=== PATIENT | female | born 1945 | race Hispanic/Latino ===

== ENCOUNTER → 2017-12-14 | Outpatient (CLI) | payer MEDICARE ==
--- NOTE | 2017-12-14 17:30 | Diagnostic Imaging Report ---
History: Low back pain for 2 weeks Comparison studies: CT lumbar spine 09/02/2016 Technique: Axial images were obtained from T12 through the sacrum. Coronal and sagittal images reconstructed from the axial data. Intravenous contrast: None Findings: Number of non-rib bearing vertebral bodies: 5 Alignment: Normal lordosis. No scoliosis. Soft tissues: No abnormalities. Paraspinal muscles: Mild fatty infiltration of the paraspinal musculature Vertebrae: No fractures, infection or neoplasm. Degenerative changes: L1-L2: No abnormalities. L2-L3: Diffuse disc bulge results in no significant canal stenosis or foraminal narrowing L3-L4: Diffuse disc bulge and mild facet hypertrophy results in no significant canal stenosis or foraminal narrowing L4-L5: Diffuse disc bulge, moderate right and severe left facet hypertrophy results in mild canal stenosis and mild left foraminal narrowing, stable L5-S1: Diffuse disc bulge with superimposed right subarticular disc protrusion and mild bilateral facet hypertrophy results in mild canal stenosis, narrowing of the right subarticular recess (abutting the descending S1 nerve root) and no significant neural foraminal narrowing, stable Sacroiliac joints: Minimal degenerative changes. Atherosclerotic changes of the abdominal aorta. Surgical donnell are partially visualized at the sigmoid colon with adjacent dystrophic calcification. IMPRESSION: 1. No significant change from previous examination. 2. Moderate right and severe left facet hypertrophy at L4-5 results in mild canal stenosis and mild left foraminal, unchanged. 3. Right subarticular disc protrusion at L5-S1 abutting the descending S1 root with mild canal stenosis and no significant foraminal narrowing, unchanged. Signed by: DR Regino Mina M.D. on 12/14/2017 5:26 PM
== END ==
LOC: CT 11:43
PROVIDERS: ATTEND Internal Medicine
DX: M54.5 Low back pain (principal)
CPT/HCPCS: 72131

== ENCOUNTER 2019-03-11 05:57 | Emergency (ER) | payer MEDICARE ==
[~2019-03-11] VITALS: Ht 154.9 cm; Wt 56.2 kg
--- OUTSIDE RECORDS SUMMARY | 2019-03-11 06:01 | XMS REPORT | Clinical Summary ---
Author Author APOLLO [facility] Address Unknown Phone Unavailable Care Team Providers Care Rubber Worker Name Role Phone Pcp, No PCP Unavailable Allergies Comments Active Allergy Reactions Severity Noted Date Meperidine 05/01/2018 Morphine 05/01/2018 Nitrofuran Analogues 05/01/2018 Sulfa (Sulfonamide 05/01/2018 Antibiotics) Medications End Date Status Medication Sig Dispensed Refills Start Date Active carvedilol (COREG) 25 MG Take 25 mg by 0 tablet mouth 2 (two) times daily with breakfast and dinner. Active glimepiride (AMARYL) 4 MG Take 4 mg by 0 tablet mouth every morning before breakfast. Active clopidogrel (PLAVIX) 75 Take 75 mg by 0 mg tablet mouth daily. Active aspirin 81 MG chewable Take 81 mg by 0 tablet mouth daily. Active ezetimibe (ZETIA) 10 mg Take 10 mg by 0 tablet mouth daily. Active ranolazine (RANEXA) 500 Take 1,000 mg 0 MG 12 hr tablet by mouth daily . Active ALPRAZolam (XANAX) 0.5 MG Take 0.5 mg 0 tablet by mouth every night as needed for Anxiety. Active zolpidem (AMBIEN) 5 MG Take 5 mg by 0 tablet mouth every night as needed for Insomnia. Active omeprazole-sodium Take 1 0 bicarbonate (ZEGERID) capsule by 40-1.1 mg-gram per mouth 3 capsuleIndications: (three) times gastric ulcer daily as needed. Active icosapent ethyl (VASCEPA) Take 1 0 1 gram Cap capsule by mouth 2 (two) times daily . 05/03/2019 Active rosuvastatin (CRESTOR) 20 Take 1 tablet 30 tablet 0 201 MG tablet (20 mg total) 8 by mouth daily. Active tiZANidine (ZANAFLEX) 2 Take 2 mg by 0 MG tablet mouth every 12 (twelve) hours. Active clidinium-chlordiazepoxid Take 1 0 e (LIBRAX) 5-2.5 mg per capsule by capsule mouth 3 (three) times daily with meals As needed . 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 H/O percutaneous transluminal coronary angioplasty 12/22/2018 Chest pain 12/09/2018 Chest pain, unspecified type 05/01/2018 Encounters Care Team Description Date Type Specialty 12/23/2018 Travel Eliezer Tirado MD PCI 12/22/2018 Surgery Eliezer Tirado MD 12/22/2018 Hospital Cardiology - Encounter 12/23/2018 Eliezer Tirado MD 12/22/2018 Orders Only Cardiology Justin Gao MD Neason, Chau Le, MD Chest pain, unspecified type (Primary Dx) 12/09/2018 Emergency Cardiac Intensive Care - 12/10/2018 12/08/2018 Orders Only General Internal Medicine 12/08/2018 Travel 05/02/2018 Orders Only General Internal Medicine Baron Duval MD Hasan, Harrison Galvez MD Chest pain, unspecified type (Primary Dx); Coronary artery disease involving [place] coronary artery, angina presence unspecified, unspecified whether [place] or transplanted heart; History of diabetes mellitus; Hypertension, unspecified type 05/01/2018 Emergency Cardiology - 05/02/2018 after 03/10/2018 Social History Date Tobacco Use Types Packs/Day Years Used Never Smoker Smokeless Tobacco: Never Used Alcohol Use Drinks/Week oz/Week Comments No Alcohol Habits Answer Date Recorded How often do you have a drink containing alcohol? Never 12/22/2018 How many drinks containing alcohol do you have on Not asked a typical day when you are drinking? How often do you have six or more drinks on one Not asked occasion? Sex Assigned at Date Recorded Not on file Industry Job Start Date Occupation Not on file Not on file Not on file Travel End Travel History Travel Start No recent travel history available. Last Filed Vital Signs Time Taken Vital Sign Reading 12/23/2018 4:09 AM [facility] Blood Pressure 134/63 12/23/2018 4:09 AM [facility] Pulse 82 12/23/2018 4:09 AM [facility] Temperature 36.3 C (97.4 F) 12/23/2018 4:09 AM [facility] Respiratory Rate 18 12/23/2018 4:09 AM [facility] Oxygen Saturation 97% - Inhaled Oxygen - Concentration 12/22/2018 10:00 AM [facility] Weight 57.6 kg (127 lb) 12/22/2018 10:00 AM [facility] Height 154.9 cm (5' 1") 12/22/2018 10:00 AM [facility] Body Mass Index 24 Plan of Treatment Not on file Implants Device Identifier Shelf Expiration Date Model / Serial / Lot Implanted Type Area Manufactur er 06/28/2020 [id number] / / [id number] Synergy Monorail Coronary Stent Left: Coronary [place] Implanted: Qty: 1 on 12/22/2018 by Eliezer Horne MD Procedures Comments Procedure Name Priority Date/Time Associated Diagnosis RHYTHM STRIP - SCAN 02/10/2019 10:30 AM CDT RHYTHM STRIP - SCAN 02/10/2019 9:01 AM CDT VASCULAR DIAGRAM -SCAN 01/10/2019 4:51 PM [facility] VASCULAR DIAGRAM -SCAN 01/02/2019 12:30 PM [facility] CARDIAC CATH REPORT - 01/02/2019 SCAN 12:30 PM [facility] REPORT OF PROCEDURE - 12/26/2018 ENDOSCOPY SCAN 11:50 AM [facility] RHYTHM STRIP - SCAN 12/26/2018 11:50 AM [facility] CBC (HEMOGRAM ONLY) Routine 12/23/2018 4:14 AM [facility] BASIC METABOLIC PANEL (7) Routine 12/23/2018 4:14 AM [facility] POCT-GLUCOSE METER Routine 12/22/2018 4:37 PM [facility] POCT-ACT Routine 12/22/2018 3:04 PM [facility] PCI 12/22/2018 Coronary artery disease 2:25 PM [facility] of [place] artery with stable angina pectoris, unspecified whether [place] or transplanted heart (HCC) Case Notes POP6 Special Needs Req. Later time CBC W/PLT COUNT & AUTO Routine 12/22/2018 DIFFERENTIAL 10:41 AM [facility] TSH Routine 12/22/2018 10:41 AM [facility] LIPID PANEL Routine 12/22/2018 10:41 AM [facility] HEMOGLOBIN A1C Routine 12/22/2018 10:41 AM [facility] CBC W/PLT COUNT & AUTO Routine 12/22/2018 DIFFERENTIAL 10:41 AM [facility] BASIC METABOLIC PANEL (7) Routine 12/22/2018 10:41 AM [facility] TROPONIN I STAT 12/10/2018 12:34 PM [facility] POCT-GLUCOSE METER Routine 12/10/2018 11:48 AM [facility] POCT-GLUCOSE METER Routine 12/10/2018 8:05 AM [facility] HEMOGLOBIN A1C Routine 12/10/2018 3:12 AM [facility] CBC W/PLT COUNT & AUTO Routine 12/10/2018 DIFFERENTIAL 3:07 AM [facility] CBC W/PLT COUNT & AUTO Routine 12/10/2018 DIFFERENTIAL 3:07 AM [facility] BASIC METABOLIC PANEL (7) Routine 12/10/2018 3:07 AM [facility] TROPONIN I STAT 12/10/2018 3:07 AM [facility] ECG 12-LEAD Routine 12/09/2018 6:39 PM [facility] Procedure Note - Interface, External Ris In - 12/09/2018 6:44 PM [facility] Ventricula r Rate 86 BPM Atrial Rate 86 BPM P-R Interval 126 ms QRS Duration 62 ms Q-T Interval 400 ms QTC Calculatio n(Bazett) 478 ms P [place] 41 degrees R [place] -4 degrees T [place] 37 degrees Normal sinus rhythm Normal ECG ECG 12-LEAD STAT 12/09/2018 6:39 PM [facility] POCT-GLUCOSE METER Routine 12/09/2018 5:35 PM [facility] TROPONIN I STAT 12/09/2018 2:10 PM [facility] POCT-GLUCOSE METER Routine 12/09/2018 11:58 AM [facility] ECG 12-LEAD Routine 12/09/2018 11:48 AM [facility] Procedure Note - Interface, External Ris In - 12/09/2018 12:37 PM [facility] Ventricula r Rate 50 BPM Atrial Rate 50 BPM P-R Interval 128 ms QRS Duration 72 ms Q-T Interval 528 ms QTC Calculatio n(Bazett) 481 ms P [place] 62 degrees R [place] 14 degrees T [place] 39 degrees Sinus bradycardi a Otherwise normal ECG ECG 12-LEAD STAT 12/09/2018 11:48 AM [facility] NM CARDIAC PET PERFUSION Routine 12/09/2018 REST AND/OR STRESS 11:38 AM [facility] TREADMILL Routine 12/09/2018 TOLERANCE(NON-NUCLEAR 11:32 AM [facility] TREADMILL) ECG 12-LEAD Routine 12/09/2018 11:21 AM [facility] Procedure Note - Interface, External Ris In - 12/09/2018 12:36 PM [facility] Ventricula r Rate 75 BPM Atrial Rate 75 BPM P-R Interval 142 ms QRS Duration 68 ms Q-T Interval 442 ms QTC Calculatio n(Bazett) 493 ms P [place] 67 degrees R [place] 22 degrees T [place] 54 degrees Normal sinus rhythm Prolonged QT Abnormal ECG ECG 12-LEAD STAT 12/09/2018 11:21 AM [facility] ECG 12-LEAD Routine 12/09/2018 7:10 AM [facility] Procedure Note - Interface, External Ris In - 12/09/2018 7:14 AM [facility] Ventricula r Rate 73 BPM Atrial Rate 73 BPM P-R Interval 146 ms QRS Duration 64 ms Q-T Interval 436 ms QTC Calculatio n(Bazett) 480 ms P [place] 72 degrees R [place] 13 degrees T [place] 68 degrees Normal sinus rhythm Normal ECG When compared with ECG of 9 23:28, No significan t change was found ECG 12-LEAD STAT 12/09/2018 7:10 AM [facility] POCT-GLUCOSE METER Routine 12/09/2018 6:58 AM [facility] TROPONIN I STAT 12/09/2018 6:55 AM [facility] ED ECG INTERPRETATION Routine 12/09/2018 1:40 AM [facility] XR CHEST 1 VIEW STAT 12/09/2018 PORTABLE/BEDSIDE 12:11 AM [facility] CBC W/PLT COUNT & AUTO STAT 12/08/2018 DIFFERENTIAL 11:48 PM [facility] B-TYPE NATRIURETIC FACTOR STAT 12/08/2018 (BNP) 11:48 PM [facility] PT/APTT STAT 12/08/2018 11:48 PM [facility] CBC W/PLT COUNT & AUTO STAT 12/08/2018 DIFFERENTIAL 11:48 PM [facility] TROPONIN I STAT 12/08/2018 11:48 PM [facility] MAGNESIUM STAT 12/08/2018 11:48 PM [facility] BASIC METABOLIC PANEL (7) STAT 12/08/2018 11:48 PM [facility] ECG 12-LEAD STAT 12/08/2018 11:28 PM [facility] RHYTHM STRIP - SCAN 05/04/2018 9:20 AM CDT POCT-GLUCOSE METER Routine 05/02/2018 6:22 PM CDT POCT-GLUCOSE METER Routine 05/02/2018 12:29 PM CDT TROPONIN I STAT 05/02/2018 12:09 PM CDT POCT-GLUCOSE METER Routine 05/02/2018 9:30 AM CDT NM CARDIAC PET PERFUSION Routine 05/02/2018 REST AND/OR STRESS 9:05 AM CDT TREADMILL Routine 05/02/2018 TOLERANCE(NON-NUCLEAR 8:57 AM CDT TREADMILL) ECG 12-LEAD Routine 05/02/2018 8:54 AM CDT Procedure Note - Interface, External Ris In - 05/02/2018 9:12 AM CDT Ventricula r Rate 69 BPM Atrial Rate 69 BPM P-R Interval 128 ms QRS Duration 72 ms Q-T Interval 430 ms QTC Calculatio n(Bazett) 460 ms P [place] 67 degrees R [place] 37 degrees T [place] 59 degrees Normal sinus rhythm Normal ECG ECG 12-LEAD STAT 05/02/2018 8:54 AM CDT CBC W/PLT COUNT & AUTO Routine 05/02/2018 DIFFERENTIAL 1:08 AM CDT CBC W/PLT COUNT & AUTO Routine 05/02/2018 DIFFERENTIAL 1:08 AM CDT TROPONIN I STAT 05/02/2018 1:08 AM CDT BASIC METABOLIC PANEL (7) Routine 05/02/2018 1:08 AM CDT POCT-GLUCOSE METER Routine 05/01/2018 10:27 PM CDT ED ECG INTERPRETATION Routine 05/01/2018 9:32 PM CDT CBC W/PLT COUNT & AUTO STAT 05/01/2018 DIFFERENTIAL 4:46 PM CDT CREATINE KINASE (CK), STAT 05/01/2018 TOTAL AND MB 4:46 PM CDT B-TYPE NATRIURETIC FACTOR STAT 05/01/2018 (BNP) 4:46 PM CDT PT/APTT STAT 05/01/2018 4:46 PM CDT CBC W/PLT COUNT & AUTO STAT 05/01/2018 DIFFERENTIAL 4:46 PM CDT TROPONIN I STAT 05/01/2018 4:46 PM CDT MAGNESIUM STAT 05/01/2018 4:46 PM CDT BASIC METABOLIC PANEL (7) STAT 05/01/2018 4:46 PM CDT XR CHEST 1 VIEW STAT 05/01/2018 PORTABLE/BEDSIDE 3:37 PM CDT ECG 12-LEAD Routine 05/01/2018 3:13 PM CDT after 03/10/2018 Results * RHYTHM STRIP - SCAN (02/10/2019 10:30 AM CDT) Only the most recent of 4 results within the time period is included. Narrative Performed At * VASCULAR DIAGRAM -SCAN (01/10/2019 4:51 PM [facility]) Only the most recent of 2 results within the time period is included. Narrative Performed At * CARDIAC CATH REPORT - SCAN (01/02/2019 12:30 PM [facility]) Narrative Performed At * EKG-SCANNED (12/26/2018 11:50 AM [facility]) Narrative Performed At * CBC (Hemogram only) (12/23/2018 4:14 AM [facility]) WBC 7.3 3.5 - 10.5 K/L [facility] RBC 3.91 (L) 3.93 - 5.22 M/L [facility] Hemoglobin 11.4 11.2 - 15.7 GM/DL [facility] Hematocrit 36.7 34.1 - 44.9 % [facility] MCV 93.9 79.4 - 94.8 fL [facility] MCH 29.2 25.6 - 32.2 pg [facility] MCHC 31.1 (L) 32.2 - 35.5 GM/DL [facility] RDW 13.2 11.7 - 14.4 % [facility] Platelets 178 150 - 450 K/CU MM [facility] MPV 10.9 9.4 - 12.3 fL [facility] nRBC 0 0 - 0 /100 WBC [facility] Specimen Blood Performing Organization Address City/State/Zipcode Phone Number [facility] [address] [place] [address] [facility] * Basic metabolic panel (12/23/2018 4:14 AM [facility]) Only the most recent of 6 results within the time period is included. Sodium 136 136 - 145 meq/L [facility] Potassium 4.0 3.5 - 5.1 meq/L [facility] Chloride 108 (H) 98 - 107 meq/L [facility] CO2 21 (L) 22 - 29 meq/L [facility] BUN 13 7 - 21 mg/dL [facility] Creatinine 0.80 0.57 - 1.25 mg/dL [facility] Glucose 120 (H) 70 - 105 mg/dL [facility] Calcium 8.7 8.4 - 10.2 mg/dL [facility] EGFR 70Comment: ESTIMATED GFR IS mL/min/1.73 sq m [facility] NOT ACCURATE CREATININE [facility] CLEARANCE IN PREDICTING GLOMERULAR FILTRATION RATE. ESTIMATED GFR IS NOT APPLICABLE FOR DIALYSIS PATIENTS. Specimen Blood Performing Organization Address City/[facility] [place] [address] [phone] [place] [address] * POC-Glucose meter (12/22/2018 4:37 PM [facility]) Only the most recent of 10 results within the time period is included. POC-Glucose Meter 89Comment: TESTED AT [facility] 70 - 110 mg/dL [address] Specimen Blood Performing Organization Address City/[facility]/[place] [address] [facility] * POC ACTIVATED CLOTTING TIME (12/22/2018 3:04 PM [facility]) Activated Clotting Time 263Comment: TESTED AT [facility] sec [address] Specimen Blood Performing Organization Address City/[facility]/[place] [address] [facility] * CBC with platelet count + automated diff (12/22/2018 10:41 AM [facility]) Only the most recent of 5 results within the time period is included. WBC 9.4 3.5 - 10.5 K/L [facility] RBC 4.40 3.93 - 5.22 M/L [facility] Hemoglobin 13.2 11.2 - 15.7 GM/DL [facility] Hematocrit 41.1 34.1 - 44.9 % [facility] MCV 93.4 79.4 - 94.8 fL [facility] MCH 30.0 25.6 - 32.2 pg [facility] MCHC 32.1 (L) 32.2 - 35.5 GM/DL [facility] RDW 13.2 11.7 - 14.4 % [facility] Platelets 210 150 - 450 K/CU MM [facility] MPV 10.5 9.4 - 12.3 fL [facility] nRBC 0 0 - 0 /100 WBC [facility] % Neutros 66 % [facility] % Lymphs 25 % [facility] % Monos 7 % [facility] % Eos 1 % [facility] % Baso 0 % [facility] # Neutros 6.13 1.56 - 6.13 K/L [facility] # Lymphs 2.38 1.18 - 3.74 K/L [facility] # Monos 0.67 (H) 0.24 - 0.36 K/L [facility] # Eos 0.11 0.04 - 0.36 K/L [facility] # Baso 0.04 0.01 - 0.08 K/L [facility] Immature 0 0 - 1 % [facility] Granulocytes-[facility] Specimen Blood Performing Organization Address City/[facility]/Zipcode Phone Number [address] [address] [phone] [place] [address] * TSH (12/22/2018 10:41 AM [facility]) TSH 2.61 0.35 - 4.94 uIU/mL [facility] Specimen Blood Performing Organization Address City/[facility]/Zipcode Phone Number [address] [address] [phone] [place] [address] * Hemoglobin A1c (12/22/2018 10:41 AM [facility]) Only the most recent of 2 results within the time period is included. Hemoglobin A1C 8.0 (H) 4.3 - 6.1 % [facility] Specimen Blood Performing Organization Address [facility] [place] [address] [phone] [place] [address] * Lipid panel (12/22/2018 10:41 AM [facility]) Triglycerides 184 mg/dL [facility] Cholesterol 149 mg/dL [facility] HDL 41 mg/dL [facility] LDL Calculated 71 mg/dL [facility] Specimen Blood Narrative Performed At Triglyceride Reference Range: [facility] Low Risk <150 [facility] [id number] High Risk 200-499 Very High Risk>=500 Cholesterol Reference Range: Low Risk <200 [id number] High Risk>240 HDL Cholesterol Reference Range: Low Risk >=60 High Risk <40 LDL Cholesterol Reference Range: Optimal<100 Near [id number] Very High >=190 Performing Organization Address City/[facility] Centercode Phone Number [address] [phone] [facility] * Troponin I (12/10/2018 12:34 PM [facility]) Only the most recent of 8 results within the time period is included. Troponin I <0.01 0.00 - 0.03 ng/mL [facility] Specimen Blood Narrative Performed At Troponin I (TnI) levels must be interpreted in the context of the presenting [facility] symptoms and the clinical findings. Elevated TnI levels indicate myocardial [facility] damage, but are not specific for ischemic heart disease. Elevated TnI levels are seen in patients with other cardiac conditions (including myocarditis and congestive heart failure), and slight TnI elevations occur in patients with other conditions, including sepsis, renal failure, acidosis, acute neurological disease, and persistent tachyarrhythmia. Performing Organization Address City/State/Zipcode Phone Number [facility] [address] [place] [address] [facility] * ECG 12 lead (12/09/2018 6:39 PM [facility]) Only the most recent of 7 results within the time period is included. Specimen Narrative Performed At Ventricular Rate 86 BPM GE MUSE Atrial Rate 86 BPM P-R Interval 126 ms QRS Duration 62 ms Q-T Interval 400 ms QTC Calculation(Bazett) 478 ms P [place] 41 degrees R [place] -4 degrees T [place] 37 degrees Normal sinus rhythm Normal ECG Confirmed by MD JI PAOLO ([id number]) on 12/11/2018 1:20:06 PM Procedure Note Interface, External Ris In - 12/11/2018 1:20 PM [facility] Ventricular Rate 86 BPM Atrial Rate 86 BPM P-R Interval 126 ms QRS Duration 62 ms Q-T Interval 400 ms QTC Calculation(Bazett) 478 ms P [place] 41 degrees R [place] -4 degrees T [place] 37 degrees Normal sinus rhythm Normal ECG Confirmed by MD JI PAOLO ([id number]) on 12/11/2018 1:20:06 PM Performing Organization Address City/State/Zipcode Phone Number [facility] * NM myocardial perfusion PET (rest and stress) (12/09/2018 11:38 AM [facility]) Only the most recent of 2 results within the time period is included. Specimen Narrative Performed At FINAL REPORT GE [facility] PROCEDURE: Rest/Stress MYOCARDIAL PERFUSION PET with regadenoson\\XA9\\ CPT CODE: 79800 INDICATION: Evaluate acute chest pain/discomfort, define extent/severity of known CAD HISTORY: Cardiac risk factors: Diabetes, hypertension, dyslipidemia. Other cardiovascular history: Known CAD with prior PTCA. Recent cardiac symptoms: Chest pain. PROTOCOL: Limited low-dose CT imaging was performed for attenuation correction. 40.1 mCi of Rb-82 chloride was injected iv at rest, and gated PET (positron emission tomography) images were obtained. Subsequently, 40.1 mCi of Rb-82 chloride was injected iv at expected peak pharmacologic effect, and gated PET images were obtained. PRELIMINARY STRESS TEST DATA FROM NONINVASIVE CARDIOLOGY: Pharmacologic stress was by 10-second iv infusion of 0.4 mg of regadenoson. Radiotracer was injected 30 seconds after start of stress. Heart rate was 75 beats/min at rest and 97 beats/min (51% of MPHR) at tracer injection. BP was 155/75 mmHg at rest and 153/75 mmHg at tracer injection. Stress was stopped for predetermined endpoint. The patient experienced chest pain, bradycardia, shortness of breath, and hypotension; the patient was treated with 125 mg of IV aminophylline. Preliminary ECG evaluation revealed sinus rhythm at rest and no ischemic changes with stress. (Final ECG interpretation and other stress and monitoring data are reported separately by Cardiology.) IMAGING FINDINGS: Study quality is good. Images obtained after rest and stress injections show normal LV activity. LV and RV volumes appear normal. Gated images obtained at rest and with stress show normal LV wall motion and thickening. LVEF at rest is >70%. LVEF at stress is >70%. IMPRESSION: 1. Normal study.2. Appropriate pharmacologic stress.3. Normal myocardial perfusion.4. Normal resting LV function. No deterioration of function is noted with pharmacologic stress.5. Normal extracardiac tracer distribution.6. Compared to previous [facility] study on 05/02/2018, there is no significant change. NONINVASIVE RISK STRATIFICATION: The above findings are considered low risk (<1% annual or CO) based on the following criterion: - Normal or small myocardial perfusion defect at rest or with stress encumbering <5% of the myocardium - Normal stress or no change of limited resting wall motion abnormalities during stress (JACC. 2017;69(17):5892-91.) Signed: Rosy Elliott MD Report Verified Date/Time:12/09/2018 14:43:51 Reading Location: [address] Reading Room Procedure Note Interface, External Ris In - 12/09/2018 2:46 PM [facility] FINAL REPORT PROCEDURE: Rest/Stress MYOCARDIAL PERFUSION PET with regadenoson\\XA9\\ CPT CODE: 00541 INDICATION: Evaluate acute chest pain/discomfort, define extent/severity of known CAD HISTORY: Cardiac risk factors: Diabetes, hypertension, dyslipidemia. Other cardiovascular history: Known CAD with prior PTCA. Recent cardiac symptoms: Chest pain. PROTOCOL: Limited low-dose CT imaging was performed for attenuation correction. 40.1 mCi of Rb-82 chloride was injected iv at rest, and gated PET (positron emission tomography) images were obtained. Subsequently, 40.1 mCi of Rb-82 chloride was injected iv at expected peak pharmacologic effect, and gated PET images were obtained. PRELIMINARY STRESS TEST DATA FROM NONINVASIVE CARDIOLOGY: Pharmacologic stress was by 10-second iv infusion of 0.4 mg of regadenoson. Radiotracer was injected 30 seconds after start of stress. Heart rate was 75 beats/min at rest and 97 beats/min (51% of MPHR) at tracer injection. BP was 155/75 mmHg at rest and 153/75 mmHg at tracer injection. Stress was stopped for predetermined endpoint. The patient experienced chest pain, bradycardia, shortness of breath, and hypotension; the patient was treated with 125 mg of IV aminophylline. Preliminary ECG evaluation revealed sinus rhythm at rest and no ischemic changes with stress. (Final ECG interpretation and other stress and monitoring data are reported separately by Cardiology.) IMAGING FINDINGS: Study quality is good. Images obtained after rest and stress injections show normal LV activity. LV and RV volumes appear normal. Gated images obtained at rest and with stress show normal LV wall motion and thickening. LVEF at rest is >70%. LVEF at stress is >70%. IMPRESSION: 1. Normal study. 2. Appropriate pharmacologic stress. 3. Normal myocardial perfusion. 4. Normal resting LV function. No deterioration of function is noted with pharmacologic stress. 5. Normal extracardiac tracer distribution. 6. Compared to previous [facility] study on 05/02/2018, there is no significant change. NONINVASIVE RISK STRATIFICATION: The above findings are considered low risk (<1% annual or CO) based on the following criterion: - Normal or small myocardial perfusion defect at rest or with stress encumbering <5% of the myocardium - Normal stress or no change of limited resting wall motion abnormalities during stress (JACC. 2017;69(17):2212-82.) Signed: Rosy Elliott MD Report Verified Date/Time: 12/09/2018 14:43:51 Reading Location: [place] [id number] Reading Room Performing Organization Address City/State/Zipcode Phone Number GE RIS * Treadmill tolerance(Non-Nuclear Treadmill) (12/09/2018 11:32 AM [facility]) Only the most recent of 2 results within the time period is included. Specimen Narrative Performed At Protocol Name Regadenoson GE MUSE Time In Exercise Phase 00:01:00 Max. Systolic BP 153 mmHg Max Diastolic BP 75 mmHg Max Heart Rate 75 BPM Max Predicted Heart Rate 147 BPM Reason For Termination Predetermined end point Reason for Test Chest Pain Target HR Formula (220 - Age)*100% Arrhythmias none Resting ECG Normal sinus rhythm ST Changes No Significant Changes Overall Impression Indeterminate due to pharmacological stress Chest Pain CHEST TIGHTNESS HR Response To Exercise BP Response To Exercise ASA COREG CRESTOR plavix Zetia VASO-VAGAL RESPONSE TO STRESS W MARKED HYPOTENION. Confirmed by fellow Hayden Min ([id number]) on 12/09/2018 1:50:02 PM Confirmed by MD BRIAN, JIM ([id number]) on 12/14/2018 7:29:48 PM Procedure Note Interface, External Ris In - 12/14/2018 7:30 PM [facility] Protocol Name Regadenoson Time In Exercise Phase 00:01:00 Max. Systolic BP 153 mmHg Max Diastolic BP 75 mmHg Max Heart Rate 75 BPM Max Predicted Heart Rate 147 BPM Reason For Termination Predetermined end point Reason for Test Chest Pain Target HR Formula (220 - Age)*100% Arrhythmias none Resting ECG Normal sinus rhythm ST Changes No Significant Changes Overall Impression Indeterminate due to pharmacological stress Chest Pain CHEST TIGHTNESS HR Response To Exercise BP Response To Exercise ASA COREG CRESTOR plavix Zetia VASO-VAGAL RESPONSE TO STRESS W MARKED HYPOTENION. Confirmed by fellow Hayden Min ([id number]) on 12/09/2018 1:50:02 PM Confirmed by MD TORRES YOCHAI ([id number]) on 12/14/2018 7:29:48 PM Performing Organization Address City/State/Zipcode Phone Number GE MUSE * ECG/EKG Interpretation (12/09/2018 1:40 AM [facility]) Only the most recent of 2 results within the time period is included. Narrative Performed At Justin Gao MD 12/09/20181:41 AM ECG/EKG Interpretation Date/Time: 12/09/2018 1:40 AM Performed by: Justin Gao MD Authorized by: Justin Gao MD The ECG was interpreted by ED physician. The ECG is interpreted as sinus rhythm. Rate is normal rate. [place] is normal. Clinical Impression: non-specific ECGECG reviewed and does not meet STEMI criteria. Patient tolerance: Patient tolerated the procedure well with no immediate complications * XR chest 1 view portable / bedside (12/09/2018 12:11 AM [facility]) Only the most recent of 2 results within the time period is included. Specimen Narrative Performed At FINAL REPORT [facility] EXAMINATION: AP PORTABLE CHEST RADIOGRAPH CLINICAL INDICATION: Chest pain IMPRESSION: Compared with 05/01/2018. Overall, the aeration of the lungs has improved in the interval. However, subtle streaky opacities persist at the lung bases. A component of atelectasis or scarring is favored given the morphology, distribution and appearance of the prior study. No definite evidence of new lobar lung consolidation, pulmonary edema or pneumothorax. Evaluation for pleural fluid is limited by the AP portable semiupright technique. The heart is mildly prominent but stable. Mediastinal contours are unchanged with a mildly ectatic thoracic aorta. No evidence of an acute osseous abnormality. If there is persistent clinical concern, chest CT could be performed for further evaluation. Signed: Amira Henderson MD Report Verified Date/Time:12/09/2018 00:47:47 Reading Location: [address] Reading Room Procedure Note Interface, External Ris In - 12/09/2018 12:49 AM [facility] FINAL REPORT EXAMINATION: AP PORTABLE CHEST RADIOGRAPH CLINICAL INDICATION: Chest pain IMPRESSION: Compared with 05/01/2018. Overall, the aeration of the lungs has improved in the interval. However, subtle streaky opacities persist at the lung bases. A component of atelectasis or scarring is favored given the morphology, distribution and appearance of the prior study. No definite evidence of new lobar lung consolidation, pulmonary edema or pneumothorax. Evaluation for pleural fluid is limited by the AP portable semiupright technique. The heart is mildly prominent but stable. Mediastinal contours are unchanged with a mildly ectatic thoracic aorta. No evidence of an acute osseous abnormality. If there is persistent clinical concern, chest CT could be performed for further evaluation. Signed: Amira Henderson MD Report Verified Date/Time: 12/09/2018 00:47:47 Reading Location: [address] Reading Room Performing Organization Address City/[facility] Phone Number GE RIS * PT/PTT (12/08/2018 11:48 PM [facility]) Only the most recent of 2 results within the time period is included. Protime 12.5 11.7 - 14.7 seconds [facility] INR 0.9 <=5.9 [facility] PTT 22.9 22.5 - 36.0 seconds [facility] Specimen Blood Narrative Performed At RECOMMENDED COUMADIN/WARFARIN INR THERAPY RANGES [facility] STANDARD DOSE: 2.0 - 3.0 Includes: PROPHYLAXIS for venous thrombosis, [facility] systemic embolization; TREATMENT for venous thrombosis and/or pulmonary embolus. HIGH RISK: Target INR is 2.5-3.5 for patients with mechanical heart valves. Performing Organization Address [facility] Phone Number [place] [phone] [place] [address] [facility] * B-type natriuretic peptide (12/08/2018 11:48 PM [facility]) Only the most recent of 2 results within the time period is included. BNP 52 0 - 100 pg/mL [facility] Specimen Blood Performing Organization Address [facility] Phone Number [facility] [address] [place] [address] [facility] * Magnesium (12/08/2018 11:48 PM [facility]) Only the most recent of 2 results within the time period is included. Magnesium 2.1 1.6 - 2.6 mg/dL [facility] Specimen Blood Performing Organization Address City/[facility] Cent[facility] Phone Number [facility] [address] [place] [address] [facility] * Creatine Kinase (CK), Total and MB (not available at [facility]) (05/01/2018 4:46 PM CDT) Total CK 42 29 - 200 U/L [facility] CK-MB 1.2 0.0 - 6.6 ng/mL [facility] MB Relative Index 2.9 % [facility] Specimen Blood Narrative Performed At CK-MB Reference Range: [facility] <6.7Normal [facility] 6.7-10.0Borderline >10.0 Abnormal Performing Organization Address City/[facility] Cent[facility] Phone Number [facility] [address] [place] [address] [facility] after 03/10/2018 Insurance Payer Benefit Subscriber ID Type Phone Address Plan / Group MEDICARE MEDICARE A xxxxxxxxxxx Medicare B (Home) [place] [address] Advance Directives For more information, please contact: [facility] [address] [place], [place] [id number] Date Inactivated Comments Code Status Date Activated Full Code 12/22/2018 10:11 AM This code status was determined by: Patient 12/22/2018 9:54 AM Full Code 12/09/2018 6:21 AM This code status was determined by: Patient 05/02/2018 10:05 PM Full Code 05/02/2018 12:32 AM This code status was determined by: Patient
--- OUTSIDE RECORDS SUMMARY | 2019-03-11 06:02 | XMS REPORT | Summary of Care ---
Author Author Virginia Gonzalez Organization Unknown Address [facility] Phone Unavailable Care Team Providers Care Trade Promotion Analyst Name Role Phone POLINA Mistry, DICK Unavailable Unavailable Virginia Gonzalez Unavailable Unavailable RADHA DDS, ROSY Unavailable Unavailable AL-YAHYA DDS, YAHYA Unavailable Unavailable AISHWARYA Mistry, SHARLENE Unavailable Unavailable POLINA FREEDMAN MD CO, DICK Rodarte Unavailable Unavailable CLAIR MADISON, ADAM Upton Unavailable Unavailable GLEN MADISON, SAMEERA Unavailable Unavailable BECKY GAMBOA MD, PERRY Upton Unavailable Unavailable Penny MADISON, June Unavailable Unavailable RADHA BARLOW CO, DANG Shaikh Unavailable Unavailable Unavailable Unavailable Functional Status Name Dates Details Functional status health issues are not documented Status: Name Dates Details Cognitive status health issues are not documented Status: Problems Name Dates Details Facial weakness (781.94, R29.810) Status: Active Facial jowling (351.8, G51.8) Status: Active Age-related facial wrinkles (701.8, L90.8) Status: Active Diabetes mellitus type 2, uncontrolled (250.02, E11.65) Status: Active GERD (gastroesophageal reflux disease) (530.81, K21.9) Status: Active Essential (primary) hypertension (401.9, I10) Status: Active Coronary artery disease with other form of angina pectoris (414.00, I25.118) Status: Active Hyperlipidemia (272.4, E78.5) Status: Active Medications Name Dates Details Ambien 10 MG Oral Tablet * Start : 12-Aug-2011 Active Xanax 2 MG Oral Tablet TAKE 1 TABLET DAILY PRN anxiety * Refills: 0 * Start : 12-Aug-2011 Active Aspirin TABS * Refills: 0 Active Plavix TABS * Refills: 0 Active traMADol HCl - 50 MG Oral Tablet TAKE 1 TABLET 4 TIMES DAILY NEEDED FOR PAIN. * Quantity: 20 Refills: 0 AL-YAHYA DDS, YAHYA * Start : 20-Aug-2015 Active Refresh Lacri-Lube Ophthalmic Ointment APPLY A THIN FILM TO AFFECTED EYE(S) EVERY 3 TO 4 HOURS DIRECTED. * Quantity: 14 Refills: 0 ROSY GARCIA DDS * Start : 14-Jan-2016 Active Maxidex 0.1 % Ophthalmic Suspension INSTILL 1 DROP 3 TIMES DAILY * Quantity: 1 Refills: 0 ROSY GARCIA DDS * Start : 04-Feb-2016 Active 5 ML Bottle Glimepiride 4 MG Oral Tablet TAKE 1 TABLET TWICE DAILY. * Quantity: 60 Refills: 3 AISHWARYA Cook.D., THUYVAN * Start : 24-Jan-2019 Active Vascepa 1 GM Oral Capsule TAKE 1 CAPSULE TWICE DAILY * Refills: 0 AISHWARYA Cook.Cayden., OHDANUYCRISTIN * Start : 24-Jan-2019 Active Protonix 40 MG Oral Tablet Delayed Release TAKE 1 TABLET DAILY. * Refills: 0 AISHWARYA Cook.Bonita, HODANUYCRISTIN * Start : 24-Jan-2019 Active Carvedilol 25 MG Oral Tablet TAKE 1 TABLET TWICE DAILY WITH MEALS. * Refills: 0 AISHWARYA Mistry, SHARLENE * Start : 24-Jan-2019 Active Rosuvastatin Calcium 20 MG Oral Tablet TAKE 1 TABLET DAILY. * Refills: 0 POLINA Mistry, ABSALON * Start : 24-Jan-2019 Active Vitamin D3 72316 UNIT Oral Tablet * Refills: 0 AISHWARYA Cook.Bonita, THUYVAN * Start : 24-Jan-2019 Active Zetia 10 MG Oral Tablet TAKE 1 TABLET DAILY. 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) Status: Resolved History of CAD (coronary artery disease) (414.00, I25.10) Status: Resolved History of Diverticulosis (562.10, K57.90) Status: Resolved History of hypertension (V12.59, Z86.79) Status: Resolved History of osteoarthritis (V13.4, Z87.39) Status: Resolved 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, 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) Status: Resolved 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, 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) Status: Resolved History of TMJ arthralgia (524.62, M26.629) Status: Resolved History of vertigo (V12.49, Z87.898) Status: Resolved Procedures Procedure Dates Details [QLH] MICROALBUMIN, RANDOM URINE (W/CREATININE) Date: 24-Jan-2019 [QLH] HEMOGLOBIN A1c Date: 24-Jan-2019 History of Jaw Surgery Completed History of Colon Surgery Completed History of Section Completed History of Hysterectomy Completed History of Oophorectomy Completed History of Anesthesia For Arteriogram (Needle) Completed History of TMJ Arthrotomy Completed History of Cath Stent Placement Completed Immunization Name Dates Details Immunizations not documented Family History Name Dates Details No pertinent family history (V49.89, Z78.9) Status: Active Social History Name Dates Details - Status: Name Dates Details Never smoker Vital Signs Date Test Result Details [id number] BP Systolic 145 mm[Hg] Status: Comments: Location: LUE; BP Diastolic 85 mm[Hg] Status: Comments: Location: LUE; Heart Rate 80 /min Status: Comments: Location: L Brachial Artery; [id number] BP Systolic 163 mm[Hg] Status: Comments: Location: LUE; BP Diastolic 91 mm[Hg] Status: Comments: Location: LUE; Heart Rate 73 /min Status: Comments: Location: L Brachial Artery; Height 62 in Status: Weight 126 lb Status: Body Mass Index Calculated 23.05 kg/m2 Status: Body Surface Area Calculated 1.57 m2 Status: Results Date Description Value Details [id number] Glucose (Point of Care In Office) Glucose POC [facility] 316 [id number]-[id number] [O] Hemoglobin A1c (in office) HEMOGLOBIN A1c 7.1 [id number]:00 Tobacco Use Screening Completed DONE Plan of Care Name Dates Details Planned Observations Planned Goals not documented Planned Encounters Appointment; DANG GARCIA RD On: 01-Mar-2019 13:00 Appointment; DICK FISH M.D. On: 30-May-2019 14:45 Instructions Name Dates Details Instructions not documented Encounters Appointment; LIVAN ENG Encounter Diagnosis: Problem not documented On: 26-Feb-2017 15:00 Appointment; [facility] Encounter Diagnosis: Problem not documented On: 04-Aug-2018 14:00 Appointment; DICK FISH M.D. Encounter Diagnosis: Problem not documented On: 24-Jan-2019 16:00
--- OUTSIDE RECORDS SUMMARY | 2019-03-11 06:02 | XMS REPORT ---
Author Author [facility] Address Unknown Phone Unavailable Care Team Providers Care Market Analysis Director Name Role Phone SAMEERA CARROLL Unavailable Unavailable RUPERTO VILLALBA Unavailable Unavailable Ra VILLALPANDO Unavailable Unavailable PERRY PENA Unavailable Unavailable Problems This patient has no known problems. Allergies, Adverse Reactions, Alerts This patient has no known allergies or adverse reactions. Medications This patient has no known medications. Results Test Description Test Time Test Comments Text Results Atomic Results Result Comments BASIC METABOLIC PANEL 2018-12-23 04:44:00 SODIUM (BEAKER) (test qyzo=991) 136 meq/L 136-145 POTASSIUM (BEAKER) (test bshp=427) 4.0 meq/L 3.5-5.1 CHLORIDE (BEAKER) (test qfug=517) 108 meq/L 98-107 CO2 (BEAKER) (test mqvx=345) 21 meq/L 22-29 BLOOD UREA NITROGEN (BEAKER) (test kepc=390) 13 mg/dL 7-21 CREATININE (BEAKER) (test mhhh=082) 0.80 mg/dL 0.57-1.25 GLUCOSE RANDOM (BEAKER) (test oqee=520) 120 mg/dL 70-105 CALCIUM (BEAKER) (test auax=485) 8.7 mg/dL 8.4-10.2 EGFR (BEAKER) (test nmnt=8433) 70 mL/min/1.73 sq m ESTIMATED GFR IS NOT ACCURATE CREATININE CLEARANCE IN PREDICTING GLOMERULAR FILTRATION RATE. ESTIMATED GFR IS NOT APPLICABLE FOR DIALYSIS PATIENTS. CBC (HEMOGRAM ONLY)2018-12-23 04:32:00* Test Item Value Reference Range Comments WHITE BLOOD CELL COUNT (BEAKER) (test rpve=200) 7.3 K/ L 3.5-10.5 RED BLOOD CELL COUNT (BEAKER) (test bshr=478) 3.91 M/ L 3.93-5.22 HEMOGLOBIN (BEAKER) (test upbg=990) 11.4 GM/DL 11.2-15.7 HEMATOCRIT (BEAKER) (test eqyo=767) 36.7 % 34.1-44.9 MEAN CORPUSCULAR VOLUME (BEAKER) (test kgwf=623) 93.9 fL 79.4-94.8 MEAN CORPUSCULAR HEMOGLOBIN (BEAKER) (test xnuq=294) 29.2 pg 25.6-32.2 MEAN CORPUSCULAR HEMOGLOBIN CONC (BEAKER) (test utiz=623) 31.1 GM/DL 32.2-35.5 RED CELL DISTRIBUTION WIDTH (BEAKER) (test bbiw=717) 13.2 % 11.7-14.4 PLATELET COUNT (BEAKER) (test psfs=811) 178 K/CU MM 150-450 MEAN PLATELET VOLUME (BEAKER) (test tcmm=306) 10.9 fL 9.4-12.3 NUCLEATED RED BLOOD CELLS (BEAKER) (test mcxs=652) 0 /100 WBC 0-0 POCT-GLUCOSE [id number] 17:07:00* Test Item Value Reference Range Comments POC-GLUCOSE METER (AKER) (test bbjb=3147) 89 mg/dL 70-110 TESTED AT [place] [id number] [facility] [address] [id number] 15:18:00* Test Item Value Reference Range Comments ACTIVATED CLOTTING TIME (AKER) (test fjic=969) 263 sec TESTED AT [place] [id number] [facility] [address] HEMOGLOBIN [id number] 12:22:00* Test Item Value Reference Range Comments HEMOGLOBIN A1C (BEAKER) (test lnvx=506) 8.0 % 4.3-6.1 [id number] 11:32:00* Test Item Value Reference Range Comments THYROID STIMULATING HORMONE (BEAKER) (test fuhg=460) 2.61 uIU/mL 0.35-4.94 LIPID [id number] 11:32:00* Test Item Value Reference Range Comments TRIGLYCERIDES (BEAKER) (test smmo=213) 184 mg/dL CHOLESTEROL (BEAKER) (test upch=130) 149 mg/dL HDL CHOLESTEROL (BEAKER) (test mrdb=734) 41 mg/dL LDL CHOLESTEROL CALCULATED (BEAKER) (test uuqp=742) 71 mg/dL Triglyceride Reference Range: Low Risk <150 Borderline 150-199 High Risk 200-499 Very High Risk >=500Cholesterol Reference Range: Low Risk <200 Borderline 200-239 High Risk >240HDL Cholesterol Reference Range: Low Risk >=60 High Risk <40LDL Cholesterol Reference Range: Optimal <100 Near Optimal 100-129 Borderline 130-159 High 160-189 Very High >=190 BASIC METABOLIC [id number] 11:32:00* Test Item Value Reference Range Comments SODIUM (BEAKER) (test zutz=700) 138 meq/L 136-145 POTASSIUM (BEAKER) (test uvrb=809) 4.4 meq/L 3.5-5.1 CHLORIDE (BEAKER) (test smpv=499) 104 meq/L 98-107 CO2 (BEAKER) (test xzfl=014) 28 meq/L 22-29 BLOOD UREA NITROGEN (BEAKER) (test ywso=072) 16 mg/dL 7-21 CREATININE (BEAKER) (test sxkn=439) 0.98 mg/dL 0.57-1.25 GLUCOSE RANDOM (BEAKER) (test ctzk=585) 132 mg/dL 70-105 CALCIUM (BEAKER) (test gaox=754) 9.7 mg/dL 8.4-10.2 EGFR (BEAKER) (test augo=5704) 56 mL/min/1.73 sq m ESTIMATED GFR IS NOT ACCURATE CREATININE CLEARANCE IN PREDICTING GLOMERULAR FILTRATION RATE. ESTIMATED GFR IS NOT APPLICABLE FOR DIALYSIS PATIENTS. CBC W/PLT COUNT & AUTO [id number] 10:53:00* Test Item Value Reference Range Comments WHITE BLOOD CELL COUNT (BEAKER) (test aozt=800) 9.4 K/ L 3.5-10.5 RED BLOOD CELL COUNT (BEAKER) (test ncfh=223) 4.40 M/ L 3.93-5.22 HEMOGLOBIN (BEAKER) (test pvvn=588) 13.2 GM/DL 11.2-15.7 HEMATOCRIT (BEAKER) (test hsun=086) 41.1 % 34.1-44.9 MEAN CORPUSCULAR VOLUME (BEAKER) (test etmh=240) 93.4 fL 79.4-94.8 MEAN CORPUSCULAR HEMOGLOBIN (BEAKER) (test ibho=222) 30.0 pg 25.6-32.2 MEAN CORPUSCULAR HEMOGLOBIN CONC (BEAKER) (test ibdl=877) 32.1 GM/DL 32.2-35.5 RED CELL DISTRIBUTION WIDTH (BEAKER) (test lior=221) 13.2 % 11.7-14.4 PLATELET COUNT (BEAKER) (test bipc=892) 210 K/CU MM 150-450 MEAN PLATELET VOLUME (BEAKER) (test erya=678) 10.5 fL 9.4-12.3 NUCLEATED RED BLOOD CELLS (BEAKER) (test amhh=948) 0 /100 WBC 0-0 NEUTROPHILS RELATIVE PERCENT (BEAKER) (test wawu=936) 66 % LYMPHOCYTES RELATIVE PERCENT (BEAKER) (test sbrc=432) 25 % MONOCYTES RELATIVE PERCENT (BEAKER) (test daup=084) 7 % EOSINOPHILS RELATIVE PERCENT (BEAKER) (test sfcu=810) 1 % BASOPHILS RELATIVE PERCENT (BEAKER) (test oyty=766) 0 % NEUTROPHILS ABSOLUTE COUNT (BEAKER) (test uutr=782) 6.13 K/ L 1.56-6.13 LYMPHOCYTES ABSOLUTE COUNT (BEAKER) (test bujh=156) 2.38 K/ L 1.18-3.74 MONOCYTES ABSOLUTE COUNT (BEAKER) (test ybrk=515) 0.67 K/ L 0.24-0.36 EOSINOPHILS ABSOLUTE COUNT (BEAKER) (test hlsu=789) 0.11 K/ L 0.04-0.36 BASOPHILS ABSOLUTE COUNT (BEAKER) (test fobu=832) 0.04 K/ L 0.01-0.08 IMMATURE GRANULOCYTES-RELATIVE PERCENT (BEAKER) (test nbhs=7442) 0 % 0-1 TROPONIN [id number] 13:20:00* Test Item Value Reference Range Comments TROPONIN I (BEAKER) (test hden=965) < ng/mL 0.00-0.03 Troponin I (TnI) levels must be interpreted in the context of the presenting sym ptoms and the clinical findings. Elevated TnI levels indicate myocardial damage, but are not specific for ischemic heart disease. Elevated TnI levels are seen in patients with other cardiac conditions (including myocarditis and congestive h eart failure), and slight TnI elevations occur in patients with other conditions , including sepsis, renal failure, acidosis, acute neurological disease, and per sistent tachyarrhythmia.POCT-GLUCOSE [id number] 11:56:00* Test Item Value Reference Range Comments POC-GLUCOSE METER (BEAKER) (test ggvx=7479) 219 mg/dL 70-110 TESTED AT [facility] [address] [facility] [address] HEMOGLOBIN [id number] 08:44:00* Test Item Value Reference Range Comments HEMOGLOBIN A1C (BEAKER) (test leut=414) 9.0 % 4.3-6.1 POCT-GLUCOSE [id number] 08:08:00* Test Item Value Reference Range Comments POC-GLUCOSE METER (BEAKER) (test aykw=0326) 136 mg/dL 70-110 TESTED AT [facility] [address] [facility] [address] TROPONIN [id number] 04:00:00* Test Item Value Reference Range Comments TROPONIN I (BEAKER) (test exhv=214) < ng/mL 0.00-0.03 Troponin I (TnI) levels must be interpreted in the context of the presenting sym ptoms and the clinical findings. Elevated TnI levels indicate myocardial damage, but are not specific for ischemic heart disease. Elevated TnI levels are seen in patients with other cardiac conditions (including myocarditis and congestive h eart failure), and slight TnI elevations occur in patients with other conditions , including sepsis, renal failure, acidosis, acute neurological disease, and per sistent tachyarrhythmia.BASIC METABOLIC [id number] 03:56:00* Test Item Value Reference Range Comments SODIUM (BEAKER) (test klgh=554) 138 meq/L 136-145 POTASSIUM (BEAKER) (test csgd=276) 4.3 meq/L 3.5-5.1 Specimen slightly hemolyzed CHLORIDE (BEAKER) (test kpys=505) 107 meq/L 98-107 CO2 (BEAKER) (test xais=594) 24 meq/L 22-29 BLOOD UREA NITROGEN (BEAKER) (test ycld=361) 14 mg/dL 7-21 CREATININE (BEAKER) (test hvym=077) 0.94 mg/dL 0.57-1.25 Specimen slightly hemolyzed GLUCOSE RANDOM (BEAKER) (test ttsv=910) 121 mg/dL 70-105 CALCIUM (BEAKER) (test wmmo=204) 9.0 mg/dL 8.4-10.2 EGFR (BEAKER) (test ocwd=8152) 58 mL/min/1.73 sq m ESTIMATED GFR IS NOT ACCURATE CREATININE CLEARANCE IN PREDICTING GLOMERULAR FILTRATION RATE. ESTIMATED GFR IS NOT APPLICABLE FOR DIALYSIS PATIENTS. CBC W/PLT COUNT & AUTO [id number] 03:32:00* Test Item Value Reference Range Comments WHITE BLOOD CELL COUNT (BEAKER) (test ekif=624) 8.7 K/ L 3.5-10.5 RED BLOOD CELL COUNT (BEAKER) (test jqir=384) 4.34 M/ L 3.93-5.22 HEMOGLOBIN (BEAKER) (test iqia=878) 12.6 GM/DL 11.2-15.7 HEMATOCRIT (BEAKER) (test gork=381) 39.4 % 34.1-44.9 MEAN CORPUSCULAR VOLUME (BEAKER) (test astw=031) 90.8 fL 79.4-94.8 MEAN CORPUSCULAR HEMOGLOBIN (BEAKER) (test fjjc=991) 29.0 pg 25.6-32.2 MEAN CORPUSCULAR HEMOGLOBIN CONC (BEAKER) (test nabw=402) 32.0 GM/DL 32.2-35.5 RED CELL DISTRIBUTION WIDTH (BEAKER) (test ajph=012) 12.8 % 11.7-14.4 PLATELET COUNT (BEAKER) (test tgam=069) 234 K/CU MM 150-450 MEAN PLATELET VOLUME (BEAKER) (test xpjm=899) 10.7 fL 9.4-12.3 NUCLEATED RED BLOOD CELLS (BEAKER) (test aqwr=229) 0 /100 WBC 0-0 NEUTROPHILS RELATIVE PERCENT (BEAKER) (test ntxn=830) 56 % LYMPHOCYTES RELATIVE PERCENT (BEAKER) (test hoyf=872) 34 % MONOCYTES RELATIVE PERCENT (BEAKER) (test wfcx=665) 8 % EOSINOPHILS RELATIVE PERCENT (BEAKER) (test hdqu=857) 2 % BASOPHILS RELATIVE PERCENT (BEAKER) (test fbke=090) 1 % NEUTROPHILS ABSOLUTE COUNT (BEAKER) (test cewl=738) 4.89 K/ L 1.56-6.13 LYMPHOCYTES ABSOLUTE COUNT (BEAKER) (test ojqy=089) 2.94 K/ L 1.18-3.74 MONOCYTES ABSOLUTE COUNT (BEAKER) (test ocio=719) 0.67 K/ L 0.24-0.36 EOSINOPHILS ABSOLUTE COUNT (BEAKER) (test rbjh=340) 0.15 K/ L 0.04-0.36 BASOPHILS ABSOLUTE COUNT (BEAKER) (test oolj=779) 0.04 K/ L 0.01-0.08 IMMATURE GRANULOCYTES-RELATIVE PERCENT (BEAKER) (test asuv=3151) 1 % 0-1 POCT-GLUCOSE [id number] 17:37:00* Test Item Value Reference Range Comments POC-GLUCOSE METER (SANDYAKER) (test jfvu=5017) 253 mg/dL 70-110 TESTED AT [facility] [address] [facility] [address] TROPONIN [id number] 14:55:00* Test Item Value Reference Range Comments TROPONIN I (BEAKER) (test mtrl=511) < ng/mL 0.00-0.03 Troponin I (TnI) levels must be interpreted in the context of the presenting sym ptoms and the clinical findings. Elevated TnI levels indicate myocardial damage, but are not specific for ischemic heart disease. Elevated TnI levels are seen in patients with other cardiac conditions (including myocarditis and congestive h eart failure), and slight TnI elevations occur in patients with other conditions , including sepsis, renal failure, acidosis, acute neurological disease, and per sistent tachyarrhythmia.PET, CARDIAC PERFUSION MULTIPLE STUDIES, REST AND STRESS 2018-12-09 14:43:00Reason for exam:->chest pain, known CADFINAL REPORT PROCEDURE: Rest/Stress MYOCARDIAL PERFUSION PET with regadenoson\XA9\ CPT CODE: 97170 INDICATION: Evaluate acute chest pain/discomfort, define extent/severity of known CAD HISTORY: Cardiac risk factors: Diabetes, hypertension, dyslipidemia. Other cardiovascular history: Known CAD with prior PTCA. Recent cardiac symptoms: Chest pain. PROTOCOL: Limited low-dose CT imaging was performed for attenuation correction. 40.1 mCi of Rb-82 chloride was injected iv at rest, and gated PET (positron emission maggi ography) images were obtained. Subsequently, 40.1 mCi of Rb-82 chloride was inje cted iv at expected peak pharmacologic effect, and gated PET images were obtaine d. PRELIMINARY STRESS TEST DATA FROM NONINVASIVE CARDIOLOGY: Pharmacologic stress was by 10-second iv infusion of 0.4 mg of regadenoson. Radiotracer was in jected 30 seconds after start of stress. Heart rate was 75 beats/min at rest and 97 beats/min (51% of MPHR) at tracer injection. BP was 155/75 mmHg at rest and 153/75 mmHg at tracer injection. Stress was stopped for predetermined endpoint. The patient experienced chest pain, bradycardia, shortness of breath, and hypote nsion; the patient was treated with 125 mg of IV aminophylline. Preliminary ECG evaluation revealed sinus rhythm at rest and no ischemic changes with stress. (F inal ECG interpretation and other stress and monitoring data are reported separa tely by Cardiology.) IMAGING FINDINGS: Study quality is good. Images obtain ed after rest and stress injections show normal LV activity. LV and RV volumes a ppear normal. Gated images obtained at rest and with stress show normal LV wall motion and thickening. LVEF at rest is >70%. LVEF at stress is >70%. IMPRESSION: 1. Normal study. 2. Appropriate pharmacologic stress. 3. Normal myocardial perfusion. 4. Normal resting LV function. No deterioration of function is noted with pharmacologic stress. 5. Normal extracardiac tracer distribution. 6. Compared to previous [facility] study on 05/02/2018, there is no significant change. NONINVASIVE RISK STRATIFICATION: The above findings are considered low risk (<1% annual or [place]) based on the following criterion:- Normal or small myocar dial perfusion defect at rest or with stress encumbering <5% of the myocardium- Normal stress or no change of limited resting wall motion abnormalities during stress(JACC. 2017;69(95):6502-99.) Signed: Julito Biggs MDReport Verified Date/Time: 12/09/2018 14:43:51 Reading Location: [address] Reading Room -GLUCOSE [id number] 12:00:00* Test Item Value Reference Range Comments POC-GLUCOSE METER (Spireon) (test xjvv=8746) 201 mg/dL 70-110 TESTED AT [facility] [address] [place] [address] TROPONIN [id number] 07:31:00* Test Item Value Reference Range Comments TROPONIN I (Spireon) (test upyy=546) < ng/mL 0.00-0.03 Troponin I (TnI) levels must be interpreted in the context of the presenting sym ptoms and the clinical findings. Elevated TnI levels indicate myocardial damage, but are not specific for ischemic heart disease. Elevated TnI levels are seen in patients with other cardiac conditions (including myocarditis and congestive h eart failure), and slight TnI elevations occur in patients with other conditions , including sepsis, renal failure, acidosis, acute neurological disease, and per sistent tachyarrhythmia.POCT-GLUCOSE [id number] 07:03:00* Test Item Value Reference Range Comments POC-GLUCOSE METER (BEAKER) (test zhch=1711) 204 mg/dL 70-110 TESTED AT [facility] [address] [facility] [address] RAD, CHEST, 1 VIEW, NON [id number] 00:47:00Reason for exam:->CHEST PAINFINAL REPORT EXAMINATION: AP PORTABLE CHEST RADIOGRAPH CLINICAL INDICATION: Chest pain IMPRESSION: Compared with 05/01/2018. Overall, the aeration of the lungs has improved in the interval. However, subtle streaky opac ities persist at the lung bases. A component of atelectasis or scarring is favor ed given the morphology, distribution and appearance of the prior study. No defi nite evidence of new lobar lung consolidation, pulmonary edema or pneumothorax. Evaluation for pleural fluid is limited by the AP portable semiupright technique . The heart is mildly prominent but stable. Mediastinal contours are unchanged w ith a mildly ectatic thoracic aorta. No evidence of an acute osseous abnormality . If there is persistent clinical concern, chest CT could be performed for furth er evaluation. Signed: Amira Henderson [place] Verified Date/Time: 12/09/2018 00: 47:47 Reading Location: [address] Reading Room /[id number] 00:19:00 * Test Item Value Reference Range Comments PROTIME (BEAKER) (test latt=427) 12.5 seconds 11.7-14.7 INR (BEAKER) (test iada=978) 0.9 <=5.9 PARTIAL THROMBOPLASTIN TIME (BEAKER) (test bjiu=311) 22.9 seconds 22.5-36.0 RECOMMENDED COUMADIN/WARFARIN INR THERAPY RANGESSTANDARD DOSE: 2.0 - 3.0 Inclu camelia: PROPHYLAXIS for venous thrombosis, systemic embolization; TREATMENT for sandra ous thrombosis and/or pulmonary embolus.HIGH RISK: Target INR is 2.5-3.5 for pat ients with mechanical heart valves.B-TYPE NATRIURETIC FACTOR (BNP)2018-12-09 00:18:00* Test Item Value Reference Range Comments B-TYPE NATRIURETIC PEPTIDE (BEAKER) (test orwb=550) 52 pg/mL 0-100 TROPONIN [id number] 00:18:00* Test Item Value Reference Range Comments TROPONIN I (BEAKER) (test vqrq=024) < ng/mL 0.00-0.03 Troponin I (TnI) levels must be interpreted in the context of the presenting sym ptoms and the clinical findings. Elevated TnI levels indicate myocardial damage, but are not specific for ischemic heart disease. Elevated TnI levels are seen in patients with other cardiac conditions (including myocarditis and congestive h eart failure), and slight TnI elevations occur in patients with other conditions , including sepsis, renal failure, acidosis, acute neurological disease, and per sistent tachyarrhythmia.[id number] 00:10:00* Test Item Value Reference Range Comments MAGNESIUM (BEAKER) (test eqel=639) 2.1 mg/dL 1.6-2.6 BASIC METABOLIC [id number] 00:10:00* Test Item Value Reference Range Comments SODIUM (BEAKER) (test ioyv=627) 137 meq/L 136-145 POTASSIUM (BEAKER) (test ykpb=226) 4.6 meq/L 3.5-5.1 CHLORIDE (BEAKER) (test ttuv=298) 108 meq/L 98-107 CO2 (BEAKER) (test wycc=207) 21 meq/L 22-29 BLOOD UREA NITROGEN (BEAKER) (test tfxv=839) 13 mg/dL 7-21 CREATININE (BEAKER) (test nrea=944) 0.97 mg/dL 0.57-1.25 GLUCOSE RANDOM (BEAKER) (test tsop=261) 241 mg/dL 70-105 CALCIUM (BEAKER) (test yykv=324) 9.5 mg/dL 8.4-10.2 EGFR (BEAKER) (test upbs=9513) 56 mL/min/1.73 sq m ESTIMATED GFR IS NOT ACCURATE CREATININE CLEARANCE IN PREDICTING GLOMERULAR FILTRATION RATE. ESTIMATED GFR IS NOT APPLICABLE FOR DIALYSIS PATIENTS. CBC W/PLT COUNT & AUTO [id number] 23:58:00* Test Item Value Reference Range Comments WHITE BLOOD CELL COUNT (BEAKER) (test hxii=253) 8.7 K/ L 3.5-10.5 RED BLOOD CELL COUNT (BEAKER) (test verr=953) 4.70 M/ L 3.93-5.22 HEMOGLOBIN (BEAKER) (test kdrq=851) 13.9 GM/DL 11.2-15.7 HEMATOCRIT (BEAKER) (test kckf=262) 43.8 % 34.1-44.9 MEAN CORPUSCULAR VOLUME (BEAKER) (test ampm=107) 93.2 fL 79.4-94.8 MEAN CORPUSCULAR HEMOGLOBIN (BEAKER) (test xkwz=503) 29.6 pg 25.6-32.2 MEAN CORPUSCULAR HEMOGLOBIN CONC (BEAKER) (test plox=040) 31.7 GM/DL 32.2-35.5 RED CELL DISTRIBUTION WIDTH (BEAKER) (test xdte=515) 12.7 % 11.7-14.4 PLATELET COUNT (BEAKER) (test zxhm=640) 247 K/CU MM 150-450 MEAN PLATELET VOLUME (BEAKER) (test xjan=296) 10.6 fL 9.4-12.3 NUCLEATED RED BLOOD CELLS (BEAKER) (test ruiy=405) 0 /100 WBC 0-0 NEUTROPHILS RELATIVE PERCENT (BEAKER) (test aegh=516) 62 % LYMPHOCYTES RELATIVE PERCENT (BEAKER) (test kldm=823) 30 % MONOCYTES RELATIVE PERCENT (BEAKER) (test yodt=662) 6 % EOSINOPHILS RELATIVE PERCENT (BEAKER) (test ivob=351) 1 % BASOPHILS RELATIVE PERCENT (BEAKER) (test cgsz=006) 0 % NEUTROPHILS ABSOLUTE COUNT (BEAKER) (test yagv=811) 5.42 K/ L 1.56-6.13 LYMPHOCYTES ABSOLUTE COUNT (BEAKER) (test maem=720) 2.65 K/ L 1.18-3.74 MONOCYTES ABSOLUTE COUNT (BEAKER) (test jktk=516) 0.51 K/ L 0.24-0.36 EOSINOPHILS ABSOLUTE COUNT (BEAKER) (test lpzg=986) 0.07 K/ L 0.04-0.36 BASOPHILS ABSOLUTE COUNT (BEAKER) (test mxzk=564) 0.03 K/ L 0.01-0.08 IMMATURE GRANULOCYTES-RELATIVE PERCENT (BEAKER) (test lffj=6581) 0 % 0-1 PET, CARDIAC PERFUSION MULTIPLE STUDIES, REST AND [id number] 01:01:00 Reason for exam:->chest painAddendum BeginsREPORT STATUS:A PROCEDURE: Rest/Stress MYOCARDIAL PERFUSION PET with regadenoson\XA9\ CPT CODE: 41946 INDICATION: Chest pain radiating to left arm; R07.9, Z86.39, I25.10, I10 HISTORY: Cardiac risk factors: CAD (PCI x4), diabetes hypertension dyslipidemia.Recent cardiac symptoms: Chest pain. Current cardiovascular-related medications: Coreg, Zetia, aspirin. PROTOCOL: Limited low-dose CT imaging was performed for attenuation correction. 40.2 mCi of Rb-82 chloride was injected iv at rest, and gated PET (positron emission tomography) images were obtained. Subsequently, 40.2 mCi of Rb-82 chloride was injected iv at expected peak pharmacologic effect, and gated PET images were obtained. PRELIMINARY STRESS TEST DATA FROM NONINVASIVE CARDIOLOGY: Pharmacologic stress was by 10-second iv infusion of 0.4 mg of regadenoson. Radiotracer was injected 30 seconds after start of stress. Heart rate was 71 beats/min at rest and 110 beats/min (74% of MPHR) at tracer injection. BP was 125/67 mmHg at rest and 114/51 mmHg at tracer injection. Stress was stopped for predetermined endpoint. The patient experienced dyspnea and flushing; treatment was not required. Preliminary ECG evaluation revealed sinus rhythm at rest and no ischemic changes with stress. (Final ECG interpretation and other stress and monitoring data are reported separately by Cardiology.) IMAGING FINDINGS: Study quality is good. Images obtained after rest and stress injections show nor mal LV activity. LV and RV volumes appear normal. Gated images obtained at rest and with stress show normal LV wall motion and thickening. LVEF at rest is great er than 70%. LVEF at stress is greater than 70%. IMPRESSION: 1. Normal study . 2. Appropriate pharmacologic stress. 3. Normal myocardial perfusion. 4. Nor mal resting LV function. No deterioration of function is noted with pharmacologi c stress. 5. Normal extracardiac tracer distribution. 6. No previous [facility] serafin dy for comparison. NOTE: This is an amended report only to adjust Indications . There has been no change in Findings or Impression. Signed: Cherie Muñiz port Verified Date/Time: 05/20/2018 01:01:13 Addendum EndsFINAL REPORT PROCEDURE: Rest/Stress MYOCARDIAL PERFUSION PET with regadeno son\XA9\ CPT CODE: 07602 INDICATION: Chest pain HISTORY: Cardiac ris k factors: CAD (PCI x4), diabetes hypertension dyslipidemia.Recent cardiac sympt oms: Chest pain. Current cardiovascular-related medications: Coreg, Zetia, aspir in. PROTOCOL: Limited low-dose CT imaging was performed for attenuation dwight ection. 40.2 mCi of Rb-82 chloride was injected iv at rest, and gated PET (posit padmini emission tomography) images were obtained. Subsequently, 40.2 mCi of Rb-82 c hloride was injected iv at expected peak pharmacologic effect, and gated PET monique ges were obtained. PRELIMINARY STRESS TEST DATA FROM NONINVASIVE CARDIOLOGY: Pharmacologic stress was by 10-second iv infusion of 0.4 mg of regadenoson. Ra diotracer was injected 30 seconds after start of stress. Heart rate was 71 beats /min at rest and 110 beats/min (74% of MPHR) at tracer injection. BP was 125/67 mmHg at rest and 114/51 mmHg at tracer injection. Stress was stopped for predete rmined endpoint. The patient experienced dyspnea and flushing; treatment was not required. Preliminary ECG evaluation revealed sinus rhythm at rest and no ische aly changes with stress. (Final ECG interpretation and other stress and monitori ng data are reported separately by Cardiology.) IMAGING FINDINGS: Study jenni lity is good. Images obtained after rest and stress injections show normal LV ac tivity. LV and RV volumes appear normal. Gated images obtained at rest and with stress show normal LV wall motion and thickening. LVEF at rest is greater than 7 0%. LVEF at stress is greater than 70%. IMPRESSION: 1. Normal study. 2. Jax ropriate pharmacologic stress. 3. Normal myocardial perfusion. 4. Normal resti ng LV function. No deterioration of function is noted with pharmacologic stress. 5. Normal extracardiac tracer distribution. 6. No previous [facility] study for co mparison. Signed: Cherie Muñiz Verified Date/Time: 05/02/2018 17:25 :17 Reading Location: [id number] [facility] Reading Room Electronically si gned by: CHERIE MUÑIZ MD on 05/20/2018 01:01 AM POCT-GLUCOSE METER 2018-05-02 18:24:00* Test Item Value Reference Range Comments POC-GLUCOSE METER (BEAKER) (test lupc=5213) 91 mg/dL 70-110 TESTED AT [address] [address] TROPONIN [id number] 13:06:00* Test Item Value Reference Range Comments TROPONIN I (BEAKER) (test dvat=088) < ng/mL 0.00-0.03 Troponin I (TnI) levels must be interpreted in the context of the presenting sym ptoms and the clinical findings. Elevated TnI levels indicate myocardial damage, but are not specific for ischemic heart disease. Elevated TnI levels are seen in patients with other cardiac conditions (including myocarditis and congestive h eart failure), and slight TnI elevations occur in patients with other conditions , including sepsis, renal failure, acidosis, acute neurological disease, and per sistent tachyarrhythmia.POCT-GLUCOSE [id number] 12:38:00* Test Item Value Reference Range Comments POC-GLUCOSE METER (BEAKER) (test oths=0046) 259 mg/dL 70-110 TESTED AT [address] [address] POCT-GLUCOSE [id number] 09:33:00* Test Item Value Reference Range Comments POC-GLUCOSE METER (BEAKER) (test xfcw=5947) 205 mg/dL 70-110 TESTED AT [address] [address] TROPONIN [id number] 01:41:00* Test Item Value Reference Range Comments TROPONIN I (BEAKER) (test gxtr=307) < ng/mL 0.00-0.03 Troponin I (TnI) levels must be interpreted in the context of the presenting sym ptoms and the clinical findings. Elevated TnI levels indicate myocardial damage, but are not specific for ischemic heart disease. Elevated TnI levels are seen in patients with other cardiac conditions (including myocarditis and congestive h eart failure), and slight TnI elevations occur in patients with other conditions , including sepsis, renal failure, acidosis, acute neurological disease, and per sistent tachyarrhythmia.BASIC METABOLIC [id number] 01:34:00* Test Item Value Reference Range Comments SODIUM (BEAKER) (test nfbj=518) 138 meq/L 136-145 POTASSIUM (BEAKER) (test ftla=934) 4.2 meq/L 3.5-5.1 Specimen slightly hemolyzed CHLORIDE (BEAKER) (test bvtr=786) 106 meq/L 98-107 CO2 (BEAKER) (test gbve=365) 23 meq/L 22-29 BLOOD UREA NITROGEN (BEAKER) (test imsx=154) 13 mg/dL 7-21 CREATININE (BEAKER) (test fxev=598) 0.87 mg/dL 0.57-1.25 Specimen slightly hemolyzed GLUCOSE RANDOM (BEAKER) (test jmhx=258) 148 mg/dL 70-105 CALCIUM (BEAKER) (test sozd=810) 9.1 mg/dL 8.4-10.2 EGFR (BEAKER) (test kkza=0372) 64 mL/min/1.73 sq m ESTIMATED GFR IS NOT ACCURATE CREATININE CLEARANCE IN PREDICTING GLOMERULAR FILTRATION RATE. ESTIMATED GFR IS NOT APPLICABLE FOR DIALYSIS PATIENTS. CBC W/PLT COUNT & AUTO [id number] 01:22:00* Test Item Value Reference Range Comments WHITE BLOOD CELL COUNT (BEAKER) (test froh=394) 8.9 K/ L 3.5-10.5 RED BLOOD CELL COUNT (BEAKER) (test jgxa=910) 4.00 M/ L 3.93-5.22 HEMOGLOBIN (BEAKER) (test tfpw=751) 11.9 GM/DL 11.2-15.7 HEMATOCRIT (BEAKER) (test qunh=870) 37.2 % 34.1-44.9 MEAN CORPUSCULAR VOLUME (BEAKER) (test lmyk=047) 93.0 fL 79.4-94.8 MEAN CORPUSCULAR HEMOGLOBIN (BEAKER) (test daea=645) 29.8 pg 25.6-32.2 MEAN CORPUSCULAR HEMOGLOBIN CONC (BEAKER) (test aflf=443) 32.0 GM/DL 32.2-35.5 RED CELL DISTRIBUTION WIDTH (BEAKER) (test ahhz=152) 13.2 % 11.7-14.4 PLATELET COUNT (BEAKER) (test fgyp=355) 244 K/CU MM 150-450 MEAN PLATELET VOLUME (BEAKER) (test dzfo=734) 10.8 fL 9.4-12.3 NUCLEATED RED BLOOD CELLS (BEAKER) (test vhqi=611) 0 /100 WBC 0-0 NEUTROPHILS RELATIVE PERCENT (BEAKER) (test nyuy=060) 55 % LYMPHOCYTES RELATIVE PERCENT (BEAKER) (test nlnc=382) 35 % MONOCYTES RELATIVE PERCENT (BEAKER) (test mdky=006) 8 % EOSINOPHILS RELATIVE PERCENT (BEAKER) (test nibc=085) 2 % BASOPHILS RELATIVE PERCENT (BEAKER) (test etrv=118) 1 % NEUTROPHILS ABSOLUTE COUNT (BEAKER) (test goto=192) 4.90 K/ L 1.56-6.13 LYMPHOCYTES ABSOLUTE COUNT (BEAKER) (test zuka=894) 3.08 K/ L 1.18-3.74 MONOCYTES ABSOLUTE COUNT (BEAKER) (test zfdu=691) 0.70 K/ L 0.24-0.36 EOSINOPHILS ABSOLUTE COUNT (BEAKER) (test zlld=021) 0.18 K/ L 0.04-0.36 BASOPHILS ABSOLUTE COUNT (BEAKER) (test izec=723) 0.05 K/ L 0.01-0.08 IMMATURE GRANULOCYTES-RELATIVE PERCENT (BEAKER) (test rqub=4157) 0 % 0-1 POCT-GLUCOSE [id number] 22:37:00* Test Item Value Reference Range Comments POC-GLUCOSE METER (BEAKER) (test lbkr=6766) 186 mg/dL 70-110 TESTED AT [facility] [address] [facility] [address] CREATINE KINASE (CK), TOTAL AND [id number] 19:33:00* Test Item Value Reference Range Comments CREATINE KINASE TOTAL (BEAKER) (test idka=191) 42 U/L 29-200 CREATINE KINASE-MB (BEAKER) (test nmtq=862) 1.2 ng/mL 0.0-6.6 CREATINE KINASE-MB INDEX (BEAKER) (test makn=390) 2.9 % CK-MB Reference Range:<6.7 Normal6.7-10.0 Borderline>10.0 Abnormal TROPONIN [id number] 19:33:00* Test Item Value Reference Range Comments TROPONIN I (BEAKER) (test qkwi=731) < ng/mL 0.00-0.03 Troponin I (TnI) levels must be interpreted in the context of the presenting sym ptoms and the clinical findings. Elevated TnI levels indicate myocardial damage, but are not specific for ischemic heart disease. Elevated TnI levels are seen in patients with other cardiac conditions (including myocarditis and congestive h eart failure), and slight TnI elevations occur in patients with other conditions , including sepsis, renal failure, acidosis, acute neurological disease, and per sistent tachyarrhythmia.B-TYPE NATRIURETIC FACTOR (BNP)2018-05-01 19:32:00* Test Item Value Reference Range Comments B-TYPE NATRIURETIC PEPTIDE (BEAKER) (test ukmk=118) 65 pg/mL 0-100 [id number] 17:33:00* Test Item Value Reference Range Comments MAGNESIUM (BEAKER) (test bhnc=455) 2.5 mg/dL 1.6-2.6 Specimen slightly hemolyzed BASIC METABOLIC [id number] 17:33:00* Test Item Value Reference Range Comments SODIUM (BEAKER) (test lltg=451) 138 meq/L 136-145 POTASSIUM (BEAKER) (test pbxm=456) 4.9 meq/L 3.5-5.1 Specimen slightly hemolyzed CHLORIDE (BEAKER) (test uxsf=731) 106 meq/L 98-107 CO2 (BEAKER) (test xckb=236) 24 meq/L 22-29 BLOOD UREA NITROGEN (BEAKER) (test irxz=462) 11 mg/dL 7-21 CREATININE (BEAKER) (test xjbw=027) 0.83 mg/dL 0.57-1.25 Specimen slightly hemolyzed GLUCOSE RANDOM (BEAKER) (test pusg=128) 124 mg/dL 70-105 CALCIUM (BEAKER) (test pobj=706) 10.0 mg/dL 8.4-10.2 EGFR (BEAKER) (test typc=2799) 67 mL/min/1.73 sq m ESTIMATED GFR IS NOT ACCURATE CREATININE CLEARANCE IN PREDICTING GLOMERULAR FILTRATION RATE. ESTIMATED GFR IS NOT APPLICABLE FOR DIALYSIS PATIENTS. PT/[id number] 17:04:00* Test Item Value Reference Range Comments PROTIME (BEAKER) (test djxo=595) 13.7 seconds 11.7-14.7 INR (BEAKER) (test viqy=877) 1.1 <=5.9 PARTIAL THROMBOPLASTIN TIME (BEAKER) (test yslb=980) 25.0 seconds 22.5-36.0 RECOMMENDED COUMADIN/WARFARIN INR THERAPY RANGESSTANDARD DOSE: 2.0 - 3.0 Inclu camelia: PROPHYLAXIS for venous thrombosis, systemic embolization; TREATMENT for sandra ous thrombosis and/or pulmonary embolus.HIGH RISK: Target INR is 2.5-3.5 for pat ients with mechanical heart valves.CBC W/PLT COUNT & AUTO [id number] 16:55:00* Test Item Value Reference Range Comments WHITE BLOOD CELL COUNT (BEAKER) (test gghu=634) 8.2 K/ L 3.5-10.5 RED BLOOD CELL COUNT (BEAKER) (test zzpb=926) 4.36 M/ L 3.93-5.22 HEMOGLOBIN (BEAKER) (test irco=663) 13.1 GM/DL 11.2-15.7 HEMATOCRIT (BEAKER) (test mswk=403) 40.4 % 34.1-44.9 MEAN CORPUSCULAR VOLUME (BEAKER) (test cwkf=454) 92.7 fL 79.4-94.8 MEAN CORPUSCULAR HEMOGLOBIN (BEAKER) (test jivw=298) 30.0 pg 25.6-32.2 MEAN CORPUSCULAR HEMOGLOBIN CONC (BEAKER) (test ghfw=316) 32.4 GM/DL 32.2-35.5 RED CELL DISTRIBUTION WIDTH (BEAKER) (test zcfn=456) 13.2 % 11.7-14.4 PLATELET COUNT (BEAKER) (test bkeo=963) 256 K/CU MM 150-450 MEAN PLATELET VOLUME (BEAKER) (test zkcr=361) 10.6 fL 9.4-12.3 NUCLEATED RED BLOOD CELLS (BEAKER) (test npcy=186) 0 /100 WBC 0-0 NEUTROPHILS RELATIVE PERCENT (BEAKER) (test czex=613) 60 % LYMPHOCYTES RELATIVE PERCENT (BEAKER) (test uufz=448) 31 % MONOCYTES RELATIVE PERCENT (BEAKER) (test nono=425) 6 % EOSINOPHILS RELATIVE PERCENT (BEAKER) (test rhip=989) 2 % BASOPHILS RELATIVE PERCENT (BEAKER) (test cbjq=136) 1 % NEUTROPHILS ABSOLUTE COUNT (BEAKER) (test idgb=467) 4.91 K/ L 1.56-6.13 LYMPHOCYTES ABSOLUTE COUNT (BEAKER) (test ykrj=083) 2.55 K/ L 1.18-3.74 MONOCYTES ABSOLUTE COUNT (BEAKER) (test kqcp=642) 0.52 K/ L 0.24-0.36 EOSINOPHILS ABSOLUTE COUNT (BEAKER) (test hgld=861) 0.12 K/ L 0.04-0.36 BASOPHILS ABSOLUTE COUNT (BEAKER) (test sjgg=716) 0.05 K/ L 0.01-0.08 IMMATURE GRANULOCYTES-RELATIVE PERCENT (BEAKER) (test rdvg=1632) 0 % 0-1 RAD, CHEST, 1 VIEW, NON [id number] 15:50:00Reason for exam:->CHEST PAINFINAL REPORT History: Chest pain Comparison: None Findings: Opacity at the left cardiophrenic angle, which may represent normal epiperic ardial fat. The lungs are clear. No pleural effusions or pneumothorax. The heart shadow is normal in size. Curvilinear densities along the left heart may repres ent coronary artery calcification or coronary artery stents. The thoracic aorta is mildly tortuous. No skeletal abnormalities are identified. Impression: No danny dence of acute cardiopulmonary disease. Signed: Yazmin Savage MDReport Verified D ate/Time: 05/01/2018 15:50:22 Reading Location: [address] Readi Room LUMBAR SPINE [place] [address] Patient Name: ERIC GEIGER MR #: [id number] : 1945 Age/Sex: 72/F Req #: [id number] Adm Physician: Ordered by: PERRY PENA MD Report #: [id number] Location: CT Room/Bed: Procedure: [id number] CT/CT LUMBAR SPINE WO Exam Date: 12/14/17 Exam Time: 1249 REPORT STATUS: S igned History: Low back pain for 2 weeks Comparison studies: CT lumbar spin e 09/02/2016 Technique: Axial images were obtained from T12 through the sacrum. Coronal and sagittal images reconstructed from the axial data. Intra venous contrast: None Findings: Number of non-rib bearing vertebral beverly dies: 5 Alignment: Normal lordosis. No scoliosis. Soft tissues: No abnor malities. Paraspinal muscles: Mild fatty infiltration of the paraspinal muscul ature Vertebrae: No fractures, infection or neoplasm. Degenerative changes: L1-L2: No abnormalities. L2-L3: Diffuse disc bulge resu lts in no significant canal stenosis or foraminal narrowing L3-L4: Diff use disc bulge and mild facet hypertrophy results in no significant canal sten osis or foraminal narrowing L4-L5: Diffuse disc bulge, moderate right and severe left facet hypertrophy results in mild canal stenosis and mild left fo raminal narrowing, stable L5-S1: Diffuse disc bulge with superimposed rig ht subarticular disc protrusion and mild bilateral facet hypertrophy results i n mild canal stenosis, narrowing of the right subarticular recess (abutting th e descending S1 nerve root) and no significant neural foraminal narrowing, sta ble Sacroiliac joints: Minimal degenerative changes. Atheroscleroti c changes of the abdominal aorta. Surgical donnell are partially visualized at the sigmoid colon with adjacent dystrophic calcification. IMPRESSION: 1. No significant change from previous examination. 2. Moderate right and severe left facet hypertrophy at L4-5 results in mild canal stenosis and mild left foraminal, unchanged. 3. Right subarticular disc protrusion at L5-S1 abutting the descending S1 root with mild canal stenosis and no signif icant foraminal narrowing, unchanged. Signed by: DR Regino Mina M.D. on 12/14/2017 5:26 PM Dictated By: REGINO FRYE MD [id number] Transcribe d By: BRITTANI on 12/14/17 6899 COPY TO: PERRY PENA MD
--- NOTE | 2019-03-11 06:44 | NUR ---
REPORT GIVEN TO French BRADEN LVN
--- NOTE | 2019-03-11 06:45 | NUR ---
received report from off going nurse. patient in room in bed resting quietly with eyes closed. arroused easily to name. family departed with home meds and requested to be notifed when pt is being discharged so he can come pick her up.
--- NOTE | 2019-03-11 09:48 | NUR ---
called and spoke with patient's family. pt is being discharged and needs a ride home. 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
== END 2019-03-11 10:22 | disposition home or self-care (01) ==
LOC: ER 05:57
DX: R42 Dizziness and giddiness (principal); T88.7XXA Unspecified adverse effect of drug or medicament, initial encounter; I10 Essential (primary) hypertension; E11.9 Type 2 diabetes mellitus without complications; I25.10 Atherosclerotic heart disease of native coronary artery without angina pectoris; F41.9 Anxiety disorder, unspecified; K21.9 Gastro-esophageal reflux disease without esophagitis
CPT/HCPCS: 36415; 82948; 99283

== ENCOUNTER 2020-05-21 11:10 | Emergency (ER) | payer MEDICARE ==
[~2020-05-21] VITALS: Ht 154.9 cm; Wt 56.2 kg
--- NOTE | 2020-05-21 11:50 | Emergency Department Note ---
History of Present Illnes History of Present Illness Chief Complaint: General Medicine Complaints History of Present Illness This is a 75 year old female PATIENT IN FROM HOME WITH COMPLAINTS OF NEEDING COVID TESTING; PATIENT DENIES FEVER OR SHORTNESS OF BREATH. PATIENT STATES THAT HER HAS COVID, AND SHE FEELS SHE NEEDS TO BE TESTED. Historian: Patient Arrival Mode: Car Residential Supervisor Required: No Severity: mild Relieving factors: none Exacerbating factors: none Associated symptoms: Reports denies other symptoms, Reports other (NO SYMPTOMS); Denies chest pain, Denies cough, Denies shortness of breath Past Medical/Family History Physician Review I have reviewed the patient's past medical and family history. Any updates have been documented here. Past Medical History Recent Fever: No Clinical Suspicion of Infectio: No New/Unexplained Change in Ment: No Past Medical History: Hypertension, Diabetes, MA, CAD, Anxiety, GERD Other Medical History: INSOMNIA DIVERTICULITIS IBS Past Surgical History: Hysterectomy, PCI, Other Surgery: Colon polyp removal Metal for facial bones facial surgeryx3 Ovary removal Social History Smoking Cessation: Never Smoker Counseling Performed: No Alcohol Use: None Any Illegal Drug Use: No TB Exposure/Symptoms: No Physically hurt or threatened: No Family History Family history of heart diseas: No Other Last Tetanus: Unknown Review of Systems Review of Systems Constitutional: Reports no symptoms EENTM: Reports no symptoms Cardiovascular: Reports no symptoms Respiratory: Reports no symptoms Gastrointestinal: Reports no symptoms Genitourinary: Reports no symptoms Musculoskeletal: Reports no symptoms Integumentary: Reports no symptoms Neurological: Reports no symptoms Psychological: Reports no symptoms Endocrine: Reports no symptoms Hematological/Lymphatic: Reports no symptoms Physical Exam Related Data Allergies: Coded Allergies: morphine (Verified Allergy, Intermediate, Hallucinations, 07/24/16) meperidine (Verified Allergy, Mild, Hives, 07/24/16) Sulfa (Sulfonamide Antibiotics) (Verified Allergy, Unknown, 05/21/20) Triage Vital Signs Vital Signs Date Time Temp Pulse Resp B/P (MAP) Pulse Ox O2 Delivery O2 Flow Rate FiO2 05/21/20 11:39 97.8 88 18 148/75 100 Room Air Vital signs reviewed: Yes Physical Exam CONSTITUTIONAL Constitutional: Present well-developed, Present well-nourished HENT HENT: Present normocephalic, Present atraumatic, Present oropharynx clear/moist, Present nose normal HENT L/R: Present left ext ear normal, Present right ext ear normal EYES Eyes: Reports PERRL, Reports conjunctivae normal NECK Neck: Present ROM normal PULMONARY Pulmonary: Present effort normal, Present breath sounds normal CARDIOVASCULAR Cardiovascular: Present regular rhythm, Present heart sounds normal, Present capillary refill normal, Present normal rate GASTROINTESTINAL Abdominal: Present soft, Present nontender, Present bowel sounds normal GENITOURINARY Genitourinary: Present exam deferred SKIN Skin: Present warm, Present dry MUSCULOSKELETAL Musculoskeletal: Present ROM normal NEUROLOGICAL Neurological: Present alert, Present oriented x 3, Present no gross motor or sensory deficits PSYCHOLOGICAL Psychological: Present mood/affect normal, Present judgement normal Assessment & Plan Medical Decision Making MDM 02 SAT 100% ON RA, NO TESTING Reassessment Reassessment DC HOME WITH INSTRUCTIONS ON SELF-QUARANTINE AND INFO REGARDING TESTING CENTERS, RTED PRN Assessment & Plan Final Impression: (1) Exposure to COVID-19 virus Depart Disposition: HOME, SELF-CARE Last Vital Signs Date Time Temp Pulse Resp B/P (MAP) Pulse Ox O2 Delivery O2 Flow Rate FiO2 05/21/20 11:39 97.8 88 18 148/75 100 Room Air JOSE COLLIER MD May 21, 2020 11:50
== END 2020-05-21 11:46 | disposition home or self-care (01) ==
LOC: ER 11:25
DX: Z03.818 Encounter for observation for suspected exposure to other biological agents ruled out (principal); I10 Essential (primary) hypertension; E11.9 Type 2 diabetes mellitus without complications; I25.10 Atherosclerotic heart disease of native coronary artery without angina pectoris; K21.9 Gastro-esophageal reflux disease without esophagitis; F41.9 Anxiety disorder, unspecified; I25.2 Old myocardial infarction
CPT/HCPCS: 99282

== ENCOUNTER → 2020-08-21 | Day surgery (SDC) | payer MEDICARE, OTHER ==
[2020-08-16 15:43] LABS: BASOPHILS # (AUTO) 0.1 (0.0-0.1); BASOPHILS % 0.6 % (0.0-1.0); EOSINOPHILS # (AUTO) 0.2 (0.0-0.4); EOSINOPHILS % 1.8 % (0.0-6.0); HEMATOCRIT 43.7 % (34.2-44.1); LYMPHOCYTES # (AUTO) 3.2 (1.0-3.2); LYMPHOCYTES % 33.7 % (18.0-39.1); MEAN CORPUSCULAR VOLUME 90.7 fL (81-99); MONOCYTES # (AUTO) 0.7 (0.2-0.8); MONOCYTES % 7.2 % (4.4-11.3); NEUTROPHILS # (AUTO) 5.3 (2.1-6.9); NEUTROPHILS % 56.6 % (38.7-80.0); PLATELET COUNT 224 x10e3/uL (140-360); RED BLOOD COUNT 4.82 x10e6/uL (3.6-5.1); RED CELL DISTRIBUTION WIDTH 12.7 % (11.7-14.4)
[~2020-08-21] MED LIST: ASPIRIN81 MG PO; CARVEDILOL12.5 MG PO; CRESTOR10 MG PO; GLIMEPIRIDE2 MG PO; LIDOCAINE HCL 2% LOCAL INJ 5 ML SDV VIAL INJ ONE; METFORMIN HCL500 MG PO; METOCLOPRAMIDE HCL 10 MG/2ML VIAL ONE; MIDAZOLAM HCL 2 MG/2 ML VIAL ONE; OMEPRAZOLE40 MG PO; PANTOPRAZOLE 40 MG 10ML VIAL ONE; PLAVIX75 MG PO; PROPOFOL IV EMULSION 10 MG/ML 20 ML VIAL ONE; VASCEPA1 GM PO; XANAX1 MG PO; ZETIA10 MG PO; ZOLPIDEM TARTRAT5 MG PO
[2020-08-21 09:30] VITALS: BP 112/72
== END | disposition home or self-care (01) ==
LOC: OR 06:05
PROVIDERS: ATTEND Internal Medicine Gastroenterology
DX: K29.70 Gastritis, unspecified, without bleeding (principal); K20.90 Esophagitis, unspecified without bleeding; K21.9 Gastro-esophageal reflux disease without esophagitis; K44.9 Diaphragmatic hernia without obstruction or gangrene; K28.9 Gastrojejunal ulcer, unspecified as acute or chronic, without hemorrhage or perforation; K57.90 Diverticulosis of intestine, part unspecified, without perforation or abscess without bleeding; I10 Essential (primary) hypertension; I25.10 Atherosclerotic heart disease of native coronary artery without angina pectoris; E11.9 Type 2 diabetes mellitus without complications; E78.5 Hyperlipidemia, unspecified; F41.9 Anxiety disorder, unspecified; Z88.6 Allergy status to analgesic agent; Z88.2 Allergy status to sulfonamides; Z88.8 Allergy status to other drugs, medicaments and biological substances; Z01.810 Encounter for preprocedural cardiovascular examination; Z01.812 Encounter for preprocedural laboratory examination; Z11.59 Encounter for screening for other viral diseases; Z79.02 Long term (current) use of antithrombotics/antiplatelets; Z79.82 Long term (current) use of aspirin; Z95.5 Presence of coronary angioplasty implant and graft
CPT/HCPCS: 36415 ×2; 43239; 82948; 85025; 88305; 88312; 93005; C9113; J2001; J2250; J2704; J2765; U0002

== ENCOUNTER → 2020-11-05 | Outpatient (CLI) | payer MEDICARE ==
[~2020-11-05] MED LIST changes: +IOPAMIDOL 370 MG/ML 200 ML INFUS..BTL INJ ONE; -LIDOCAINE HCL 2% LOCAL INJ 5 ML SDV VIAL INJ ONE; -METOCLOPRAMIDE HCL 10 MG/2ML VIAL ONE; -MIDAZOLAM HCL 2 MG/2 ML VIAL ONE; -PANTOPRAZOLE 40 MG 10ML VIAL ONE; -PROPOFOL IV EMULSION 10 MG/ML 20 ML VIAL ONE; +SODIUM CHLORIDE 0.9% 50ML 50 ML ONE
[2020-11-05 14:21] LABS: CREATININE, SERUM 0.95 mg/dL (0.57-1.11)
== END ==
LOC: NM 12:03
PROVIDERS: ATTEND Internal Medicine Gastroenterology
DX: R10.84 Generalized abdominal pain (principal); R10.10 Upper abdominal pain, unspecified
CPT/HCPCS: 36415; 74177; 78227; 82565; 84520; A9537; Q9967

== ENCOUNTER 2020-11-28 13:47 | Emergency (ER) | payer MEDICARE ==
[~2020-11-28] VITALS: Ht 154.9 cm; Wt 56.2 kg
[~2020-11-28 13:47] MED LIST changes: -IOPAMIDOL 370 MG/ML 200 ML INFUS..BTL INJ ONE; -SODIUM CHLORIDE 0.9% 50ML 50 ML ONE
[2020-11-28] MEDS ORDERED: ONDANSETRON HCL 4 MG ORAL DISINTEGRATING TAB PO ONE (14:45)
[2020-11-28] MEDS ORDERED: ULTRAM 50MG50 MG PO (15:19)
[2020-11-28] MEDS ORDERED: VALIUM2 MG PO (15:19)
== END 2020-11-28 16:01 | disposition home or self-care (01) ==
LOC: ER 14:27
DX: M54.5 Low back pain (principal); S00.83XA Contusion of other part of head, initial encounter; M25.551 Pain in right hip; I10 Essential (primary) hypertension; E11.9 Type 2 diabetes mellitus without complications; I25.10 Atherosclerotic heart disease of native coronary artery without angina pectoris; F41.9 Anxiety disorder, unspecified; K21.9 Gastro-esophageal reflux disease without esophagitis; I25.2 Old myocardial infarction; G47.00 Insomnia, unspecified; W18.2XXA Fall in (into) shower or empty bathtub, initial encounter; Y93.E1 Activity, personal bathing and showering; Y92.002 Bathroom of unspecified non-institutional (private) residence as the place of occurrence of the external cause
CPT/HCPCS: 70450; 71045; 72125; 72170; 93005; 99283; Q0162

== ENCOUNTER → 2022-07-24 | Outpatient (CLI) | payer MEDICARE ==
[~2022-07-24] MED LIST changes: +ULTRAM 50MG50 MG PO; +VALIUM2 MG PO
== END ==
LOC: MAMMO 08:42
PROVIDERS: ATTEND Internal Medicine
DX: Z12.31 Encounter for screening mammogram for malignant neoplasm of breast (principal); M85.88 Other specified disorders of bone density and structure, other site; M54.50 Low back pain, unspecified
CPT/HCPCS: 72131; 77067; 77080

== ENCOUNTER 2022-09-30 03:50 | Inpatient (IN) | payer MEDICARE ==
[~2022-09-30] VITALS: Ht 154.9 cm; Wt 56.2 kg
[2022-09-30 05:40] LABS: BASOPHILS # (AUTO) 0.1 (0.0-0.1); BASOPHILS % 0.4 % (0.0-1.0); EOSINOPHILS # (AUTO) 0.1 (0.0-0.4); EOSINOPHILS % 0.9 % (0.0-6.0); HEMOGLOBIN 14.6 g/dL (12.0-16.0); LYMPHOCYTES # (AUTO) 3.4 (1.0-3.2); MEAN CORPUSCULAR HEMOGLOBIN 27.5 pg (28-32); MEAN CORPUSCULAR HGB CONC 30.4 g/dL (31-35); MEAN CORPUSCULAR VOLUME 90.6 fL (81-99); MONOCYTES % 6.9 % (4.4-11.3); NEUTROPHILS # (AUTO) 9.7 (2.1-6.9); NEUTROPHILS % 67.5 % (38.7-80.0); PLATELET COUNT 241 x10e3/uL (140-360); RED CELL DISTRIBUTION WIDTH 14.6 % (11.7-14.4)
[2022-09-30] MEDS ORDERED: DICYCLOMINE HCL 20 MG/2 ML VIAL IM ONE (06:15)
[2022-09-30 06:17] LABS: ALANINE AMINOTRANSFERASE 28 IU/L (0-55); ALBUMIN 4.6 g/dL (3.5-5.0); ALBUMIN/GLOBULIN RATIO 1.6 (0.8-2.0); ALKALINE PHOSPHATASE 45 IU/L (40-150); ANION GAP 17.7 mmol/L (8-16); BLOOD UREA NITROGEN 16 mg/dL (7-26); BUN/CREATININE RATIO 15 (6-25); CALCIUM 9.9 mg/dL (8.4-10.2); CARBON DIOXIDE 25 mmol/L (22-29); CHLORIDE 102 mmol/L (98-107); CREATINE KINASE 84 IU/L (29-168); CREATININE, SERUM 1.06 mg/dL (0.57-1.11); GLUCOSE 213 mg/dL (74-118); INR 0.9; POTASSIUM 4.7 mmol/L (3.5-5.1); SODIUM 140 mmol/L (136-145)
[2022-09-30 06:18] LABS: PARTIAL THROMBOPLASTIN TIME 30.3 seconds (23.8-35.5)
[2022-09-30] MEDS ORDERED: IOPAMIDOL 370 MG/ML 100 ML INFUS..BTL INJ ONE (06:50)
[2022-09-30] MEDS ORDERED: MAGNESIUM/ALUMINUM/SIMETHICONE 30 ML UDC ONE (08:46)
[2022-09-30] MEDS ORDERED: LIDOCAINE VISC 2% SOLN 15 ML UDC ONE (08:46)
[2022-09-30] MEDS ORDERED: ONDANSETRON HCL INJ 2MG/ML 2ML 2 MG/ML VIAL IV STA (09:02)
[2022-09-30] MEDS: DONNATAL/LIDOCAINE/MAALOX 30 ML SUSP PO SCH ×3 (09:04→21:00)
[2022-09-30] MEDS ORDERED: CIPROFLOXACIN 400 MG/D5W 200ML 200 ML IV STA (09:04)
[2022-09-30] MEDS ORDERED: METRONIDAZOLE 750MG/NS 150ML 150 ML IV STA (09:04)
[2022-09-30] MEDS ORDERED: FENTANYL CITRATE/PF 100MCG/2 ML INJ IV PRN (09:15)
[2022-09-30] MEDS: SODIUM CHLORIDE 0.9% 1000ML 1,000 ML IV SCH ×2 (09:54→15:00)
[2022-09-30] MEDS: METRONIDAZOLE 500MG/NS 100ML 100 ML IV SCH ×2 (14:00→22:43)
[2022-09-30] MEDS ORDERED: DICYCLOMINE HCL10 MG PO (14:18)
[2022-09-30] MEDS ORDERED: FAMOTIDINE40 MG PO (14:18)
[2022-09-30] MEDS ORDERED: JARDIANCE10 MG PO (14:18)
[2022-09-30] MEDS ORDERED: CEFEPIME 2 GM VIAL ONE (15:06)
[2022-09-30] MEDS: ONDANSETRON HCL INJ 2MG/ML 2ML 2 MG/ML VIAL IV PRN ×2 (15:24→18:45)
[2022-09-30] MEDS: CEFEPIME 2 GM in SODIUM CHLORIDE 0.9% 100 ML IV SCH ×2 (15:36→22:43)
[2022-09-30 16:36] VITALS: BP 145/80
[2022-09-30] MEDS ORDERED: DEXTROSE 50% SYRINGE 50 ML IV PRN (17:30)
[2022-09-30] MEDS: HYDROMORPHONE 1MG/1ML INJ IV PRN (18:45)
[2022-09-30 20:00] VITALS: BP 102/75
[2022-09-30] MEDS: INSULIN LISPRO 100 UNIT/1 ML 3ML VIAL SQ SCH (21:00)
[2022-10-01] VITALS (9 sets, daily range): BP systolic 102–130; BP diastolic 61–71
[2022-10-01] MEDS: SODIUM CHLORIDE 0.9% 1000ML 1,000 ML IV SCH ×3 (00:06→20:16)
[2022-10-01] MEDS: HYDROMORPHONE 1MG/1ML INJ IV PRN ×4 (00:15→20:16)
[2022-10-01 04:57] LABS: HEMATOCRIT 39.6 % (34.2-44.1); MEAN CORPUSCULAR HEMOGLOBIN 27.3 pg (28-32); MEAN CORPUSCULAR HGB CONC 30.3 g/dL (31-35); MEAN CORPUSCULAR VOLUME 90.2 fL (81-99); PLATELET COUNT 196 x10e3/uL (140-360); RED BLOOD COUNT 4.39 x10e6/uL (3.6-5.1)
[2022-10-01 05:04] LABS: ANION GAP 14.2 mmol/L (8-16); CALCIUM 8.4 mg/dL (8.4-10.2); CREATININE, SERUM 0.83 mg/dL (0.57-1.11); POTASSIUM 4.2 mmol/L (3.5-5.1)
[2022-10-01] MEDS: METRONIDAZOLE 500MG/NS 100ML 100 ML IV SCH ×3 (05:20→20:16)
[2022-10-01] MEDS: CEFEPIME 2 GM in SODIUM CHLORIDE 0.9% 100 ML IV SCH ×3 (05:20→22:00)
[2022-10-01 06:55] LABS: LYMPHOCYTES % (MANUAL) 16 % (19-48); MONOCYTES % (MANUAL) 3 % (3.4-9.0); NEUTROPHILS % (MANUAL) 81 % (40-74); PLATELET ESTIMATE ADEQUATE; PLATELET MORPHOLOGY COMMENT FEW LARGE; RBC MORPHOLOGY COMMENT NORMAL
[2022-10-01] MEDS: INSULIN LISPRO 100 UNIT/1 ML 3ML VIAL SQ SCH ×4 (07:30→21:00)
[2022-10-01] MEDS: DONNATAL/LIDOCAINE/MAALOX 30 ML SUSP PO SCH ×3 (09:00→21:00)
[2022-10-01] MEDS: PANTOPRAZOLE SOD 40 MG TABEC PO SCH (10:30)
[2022-10-01] MEDS: CARVEDILOL 12.5 MG TAB PO SCH (17:00)
[2022-10-01] MEDS: SIMVASTATIN 20 MG TAB PO SCH (21:00)
[2022-10-02] VITALS (9 sets, daily range): BP systolic 116–144; BP diastolic 62–78
[2022-10-02] MEDS: SODIUM CHLORIDE 0.9% 1000ML 1,000 ML IV SCH ×3 (01:00→16:54)
[2022-10-02] MEDS: METRONIDAZOLE 500MG/NS 100ML 100 ML IV SCH ×3 (05:43→21:04)
[2022-10-02 05:44] LABS: BASOPHILS % 0.3 % (0.0-1.0); EOSINOPHILS # (AUTO) 0.1 (0.0-0.4); EOSINOPHILS % 0.8 % (0.0-6.0); LYMPHOCYTES # (AUTO) 1.7 (1.0-3.2); LYMPHOCYTES % 16.4 % (18.0-39.1); MEAN CORPUSCULAR HEMOGLOBIN 27.5 pg (28-32); MEAN CORPUSCULAR HGB CONC 30.6 g/dL (31-35); MONOCYTES # (AUTO) 0.9 (0.2-0.8); MONOCYTES % 8.4 % (4.4-11.3); NEUTROPHILS # (AUTO) 7.6 (2.1-6.9); NEUTROPHILS % 73.7 % (38.7-80.0); PLATELET COUNT 169 x10e3/uL (140-360); RED CELL DISTRIBUTION WIDTH 15.7 % (11.7-14.4)
[2022-10-02] MEDS: CEFEPIME 2 GM in SODIUM CHLORIDE 0.9% 100 ML IV SCH ×3 (05:44→23:55)
[2022-10-02 06:02] LABS: ALBUMIN 3.2 g/dL (3.5-5.0); ALBUMIN/GLOBULIN RATIO 1.3 (0.8-2.0); ANION GAP 13.7 mmol/L (8-16); CREATININE, SERUM 0.66 mg/dL (0.57-1.11); POTASSIUM 3.7 mmol/L (3.5-5.1)
[2022-10-02] MEDS: INSULIN LISPRO 100 UNIT/1 ML 3ML VIAL SQ SCH ×4 (07:30→21:00)
[2022-10-02] MEDS: PANTOPRAZOLE SOD 40 MG TABEC PO SCH (09:00)
[2022-10-02] MEDS: DONNATAL/LIDOCAINE/MAALOX 30 ML SUSP PO SCH ×3 (09:00→21:00)
[2022-10-02] MEDS: CARVEDILOL 12.5 MG TAB PO SCH ×2 (09:00→21:00)
[2022-10-02] MEDS: SIMVASTATIN 20 MG TAB PO SCH (21:00)
[2022-10-03] VITALS (8 sets, daily range): BP systolic 104–139; BP diastolic 44–73
[2022-10-03] MEDS: SODIUM CHLORIDE 0.9% 1000ML 1,000 ML IV SCH ×3 (00:37→17:37)
[2022-10-03] MEDS: CEFEPIME 2 GM in SODIUM CHLORIDE 0.9% 100 ML IV SCH ×3 (05:58→23:00)
[2022-10-03] MEDS: METRONIDAZOLE 500MG/NS 100ML 100 ML IV SCH ×3 (05:58→21:53)
[2022-10-03] MEDS: INSULIN LISPRO 100 UNIT/1 ML 3ML VIAL SQ SCH ×4 (07:30→20:49)
[2022-10-03 07:34] LABS: BASOPHILS % 0.3 % (0.0-1.0); EOSINOPHILS % 0.4 % (0.0-6.0); HEMATOCRIT 34.1 % (34.2-44.1); HEMOGLOBIN 10.8 g/dL (12.0-16.0); LYMPHOCYTES # (AUTO) 1.6 (1.0-3.2); LYMPHOCYTES % 13.7 % (18.0-39.1); MEAN CORPUSCULAR HEMOGLOBIN 27.5 pg (28-32); MEAN CORPUSCULAR HGB CONC 31.7 g/dL (31-35); MEAN CORPUSCULAR VOLUME 86.8 fL (81-99); MONOCYTES # (AUTO) 0.8 (0.2-0.8); MONOCYTES % 7.3 % (4.4-11.3); NEUTROPHILS # (AUTO) 8.8 (2.1-6.9); NEUTROPHILS % 77.7 % (38.7-80.0); PLATELET COUNT 169 x10e3/uL (140-360); RED BLOOD COUNT 3.93 x10e6/uL (3.6-5.1); RED CELL DISTRIBUTION WIDTH 15.2 % (11.7-14.4)
[2022-10-03 07:49] LABS: ANION GAP 17.6 mmol/L (8-16); CALCIUM 8.1 mg/dL (8.4-10.2); CREATININE, SERUM 0.69 mg/dL (0.57-1.11); POTASSIUM 3.6 mmol/L (3.5-5.1)
[2022-10-03] MEDS: PANTOPRAZOLE SOD 40 MG TABEC PO SCH (09:00)
[2022-10-03] MEDS: DONNATAL/LIDOCAINE/MAALOX 30 ML SUSP PO SCH ×3 (09:00→20:49)
[2022-10-03] MEDS: CARVEDILOL 12.5 MG TAB PO SCH ×2 (09:00→20:48)
[2022-10-03] MEDS: LORAZEPAM INJ 2 MG/ML VIAL IV PRN (20:35)
[2022-10-03] MEDS: SIMVASTATIN 20 MG TAB PO SCH (20:49)
[2022-10-04] VITALS (8 sets, daily range): BP systolic 126–152; BP diastolic 72–77
[2022-10-04] MEDS: SODIUM CHLORIDE 0.9% 1000ML 1,000 ML IV SCH ×3 (04:05→17:22)
[2022-10-04 05:16] LABS: BASOPHILS % 0.3 % (0.0-1.0); EOSINOPHILS % 0.4 % (0.0-6.0); HEMATOCRIT 31.9 % (34.2-44.1); HEMOGLOBIN 10.3 g/dL (12.0-16.0); LYMPHOCYTES # (AUTO) 1.9 (1.0-3.2); LYMPHOCYTES % 18.6 % (18.0-39.1); MEAN CORPUSCULAR HEMOGLOBIN 27.5 pg (28-32); MEAN CORPUSCULAR HGB CONC 32.3 g/dL (31-35); MEAN CORPUSCULAR VOLUME 85.1 fL (81-99); MONOCYTES # (AUTO) 0.8 (0.2-0.8); MONOCYTES % 8.4 % (4.4-11.3); NEUTROPHILS # (AUTO) 7.1 (2.1-6.9); NEUTROPHILS % 71.8 % (38.7-80.0); PLATELET COUNT 168 x10e3/uL (140-360); RED BLOOD COUNT 3.75 x10e6/uL (3.6-5.1); RED CELL DISTRIBUTION WIDTH 15.2 % (11.7-14.4)
[2022-10-04 05:36] LABS: ANION GAP 16.3 mmol/L (8-16); CALCIUM 7.7 mg/dL (8.4-10.2); CREATININE, SERUM 0.63 mg/dL (0.57-1.11); POTASSIUM 3.3 mmol/L (3.5-5.1)
[2022-10-04] MEDS: METRONIDAZOLE 500MG/NS 100ML 100 ML IV SCH ×3 (05:38→22:09)
[2022-10-04] MEDS: CEFEPIME 2 GM in SODIUM CHLORIDE 0.9% 100 ML IV SCH ×3 (06:46→23:07)
[2022-10-04] MEDS: INSULIN LISPRO 100 UNIT/1 ML 3ML VIAL SQ SCH ×4 (07:30→20:07)
[2022-10-04] MEDS ORDERED: POTASSIUM CHLORIDE 20 MEQ TAB CR PO STA (08:05)
[2022-10-04] MEDS: CARVEDILOL 12.5 MG TAB PO SCH ×2 (09:00→20:48)
[2022-10-04] MEDS: DONNATAL/LIDOCAINE/MAALOX 30 ML SUSP PO SCH ×3 (09:00→20:06)
[2022-10-04] MEDS: PANTOPRAZOLE SOD 40 MG TABEC PO SCH (09:25)
[2022-10-04] MEDS: LORAZEPAM INJ 2 MG/ML VIAL IV PRN (20:47)
[2022-10-04] MEDS: SIMVASTATIN 20 MG TAB PO SCH (20:47)
[2022-10-05] VITALS: BP 100/61
[2022-10-05] MEDS: SODIUM CHLORIDE 0.9% 1000ML 1,000 ML IV SCH ×2 (03:32→14:07)
[2022-10-05 04:00] VITALS: BP 123/63
[2022-10-05 05:02] LABS: BASOPHILS % 0.3 % (0.0-1.0); EOSINOPHILS # (AUTO) 0.1 (0.0-0.4); EOSINOPHILS % 0.7 % (0.0-6.0); HEMATOCRIT 31.2 % (34.2-44.1); HEMOGLOBIN 9.6 g/dL (12.0-16.0); LYMPHOCYTES # (AUTO) 1.6 (1.0-3.2); LYMPHOCYTES % 16.7 % (18.0-39.1); MEAN CORPUSCULAR HEMOGLOBIN 27.6 pg (28-32); MEAN CORPUSCULAR HGB CONC 30.8 g/dL (31-35); MONOCYTES # (AUTO) 0.9 (0.2-0.8); MONOCYTES % 9.3 % (4.4-11.3); NEUTROPHILS % 72.6 % (38.7-80.0); PLATELET COUNT 184 x10e3/uL (140-360); RED BLOOD COUNT 3.48 x10e6/uL (3.6-5.1); RED CELL DISTRIBUTION WIDTH 15.4 % (11.7-14.4)
[2022-10-05 05:11] LABS: MEAN CORPUSCULAR VOLUME 89.7 fL (81-99)
[2022-10-05] MEDS: METRONIDAZOLE 500MG/NS 100ML 100 ML IV SCH ×2 (05:43→14:08)
[2022-10-05 05:44] LABS: ALBUMIN 3.1 g/dL (3.5-5.0); ALBUMIN/GLOBULIN RATIO 1.5 (0.8-2.0); ANION GAP 14.5 mmol/L (8-16); CALCIUM 7.9 mg/dL (8.4-10.2); CREATININE, SERUM 0.65 mg/dL (0.57-1.11); MAGNESIUM 1.9 MG/DL (1.3-2.1); POTASSIUM 3.5 mmol/L (3.5-5.1)
[2022-10-05] MEDS: CEFEPIME 2 GM in SODIUM CHLORIDE 0.9% 100 ML IV SCH ×2 (06:54→14:08)
[2022-10-05 08:20] VITALS: BP 125/76
[2022-10-05] MEDS: INSULIN LISPRO 100 UNIT/1 ML 3ML VIAL SQ SCH ×2 (09:43→11:30)
[2022-10-05] MEDS: PANTOPRAZOLE SOD 40 MG TABEC PO SCH (09:47)
[2022-10-05] MEDS: CARVEDILOL 12.5 MG TAB PO SCH (09:47)
[2022-10-05 10:13] VITALS: BP 125/76
[2022-10-05] MEDS: DONNATAL/LIDOCAINE/MAALOX 30 ML SUSP PO SCH (11:08)
[2022-10-05 12:38] VITALS: BP 127/70
== END 2022-10-05 15:41 | disposition home or self-care (01) | DRG 389 ==
LOC: ER 04:03 → ERHOLD 09:18 → MED/SURG 13:00
PROVIDERS: ADMIT Internal Medicine; ATTEND Internal Medicine
DX: K56.50 Intestinal adhesions [bands], unspecified as to partial versus complete obstruction (principal); K57.92 Diverticulitis of intestine, part unspecified, without perforation or abscess without bleeding; I25.10 Atherosclerotic heart disease of native coronary artery without angina pectoris; Z95.5 Presence of coronary angioplasty implant and graft; G47.00 Insomnia, unspecified; E78.5 Hyperlipidemia, unspecified; E11.69 Type 2 diabetes mellitus with other specified complication; Z88.5 Allergy status to narcotic agent; Z88.2 Allergy status to sulfonamides; K52.9 Noninfective gastroenteritis and colitis, unspecified; Z20.822 Contact with and (suspected) exposure to COVID-19; I48.0 Paroxysmal atrial fibrillation; Z79.01 Long term (current) use of anticoagulants; D64.9 Anemia, unspecified; K21.9 Gastro-esophageal reflux disease without esophagitis; F41.9 Anxiety disorder, unspecified; Z79.4 Long term (current) use of insulin; I12.9 Hypertensive chronic kidney disease with stage 1 through stage 4 chronic kidney disease, or unspecified chronic kidney disease; E11.22 Type 2 diabetes mellitus with diabetic chronic kidney disease; N18.9 Chronic kidney disease, unspecified
CPT/HCPCS: 36415; 71046; 74018; 74177; 80048; 80053; 82550; 82553; 82948; 83605; 83735; 84484; 85007; 85025; 85027; 85610; 85730; 87040; 93005; 94799; 99285; J0500; J0692; J1170; J2060; J2405; J3010; J7030; J7050; Q9967

== ENCOUNTER 2022-12-22 14:56 | Outpatient (RCR) | payer MEDICARE ==
[~2022-12-22 14:56] MED LIST changes: +DICYCLOMINE HCL10 MG PO; +FAMOTIDINE40 MG PO; +JARDIANCE10 MG PO
== END 2023-01-05 ==
LOC: PT 14:56
PROVIDERS: ATTEND Specialist
DX: M47.816 Spondylosis without myelopathy or radiculopathy, lumbar region (principal)

== ENCOUNTER → 2023-03-25 | Outpatient (CLI) | payer MEDICARE ==
[~2023-03-25] MED LIST changes: +DOXYCYCLINE HY100 MG PO
== END ==
LOC: CT 08:45
PROVIDERS: ATTEND Internal Medicine
DX: R51.9 Headache, unspecified (principal); N60.31 Fibrosclerosis of right breast; N60.32 Fibrosclerosis of left breast
CPT/HCPCS: 70450

== ENCOUNTER 2023-03-28 14:45 | Emergency (ER) | payer MEDICARE ==
[~2023-03-28] VITALS: Ht 154.9 cm; Wt 52.6 kg
[~2023-03-28 14:45] MED LIST changes: -DOXYCYCLINE HY100 MG PO
[2023-03-28] MEDS ORDERED: SODIUM CHLORIDE 0.9% 500ML 500 ML IV ONE (15:30)
[2023-03-28 15:45] LABS: BASOPHILS # (AUTO) 0.1 (0.0-0.1); BASOPHILS % 0.6 % (0.0-1.0); EOSINOPHILS # (AUTO) 0.1 (0.0-0.4); EOSINOPHILS % 1.4 % (0.0-6.0); HEMATOCRIT 35.4 % (34.2-44.1); HEMOGLOBIN 10.3 g/dL (12.0-16.0); LYMPHOCYTES # (AUTO) 2.5 (1.0-3.2); LYMPHOCYTES % 27.6 % (18.0-39.1); MEAN CORPUSCULAR HEMOGLOBIN 22.2 pg (28-32); MEAN CORPUSCULAR HGB CONC 29.1 g/dL (31-35); MEAN CORPUSCULAR VOLUME 76.5 fL (81-99); MONOCYTES # (AUTO) 0.7 (0.2-0.8); MONOCYTES % 8.1 % (4.4-11.3); NEUTROPHILS # (AUTO) 5.6 (2.1-6.9); NEUTROPHILS % 62.1 % (38.7-80.0); PLATELET COUNT 334 x10e3/uL (140-360); RED BLOOD COUNT 4.63 x10e6/uL (3.6-5.1); RED CELL DISTRIBUTION WIDTH 17.2 % (11.7-14.4)
[2023-03-28 15:59] LABS: INR 1.01; PROTHROMBIN TIME 13.8 seconds (11.9-14.5)
[2023-03-28 16:11] LABS: ALANINE AMINOTRANSFERASE 14 IU/L (0-55); ALBUMIN/GLOBULIN RATIO 1.1 (0.8-2.0); ALKALINE PHOSPHATASE 38 IU/L (40-150); ANION GAP 14.7 mmol/L (8-16); BLOOD UREA NITROGEN 17 mg/dL (7-26); BUN/CREATININE RATIO 14 (6-25); CALCIUM 9.6 mg/dL (8.4-10.2); CARBON DIOXIDE 23 mmol/L (22-29); CHLORIDE 106 mmol/L (98-107); CREATININE, SERUM 1.19 mg/dL (0.57-1.11); GLUCOSE 225 mg/dL (74-118); MAGNESIUM 2.2 MG/DL (1.3-2.1); POTASSIUM 4.7 mmol/L (3.5-5.1); SODIUM 139 mmol/L (136-145)
[2023-03-28 17:17] LABS: CLARITY,URINE HAZY (CLEAR); COLOR,URINE YELLOW (YELLOW); KETONES,URINE NEGATIVE (NEGATIVE); LEUKOCYTE ESTERASE ,URINE NEGATIVE (NEGATIVE); NITRITE,URINE NEGATIVE (NEGATIVE); PROTEIN,URINE DIPSTICK NEGATIVE (NEGATIVE); URINE UROBILINOGEN 0.2 mg/dL (0.2 - 1)
[2023-03-28 17:18] LABS: BACTERIA,URINE FEW /HPF; EPITHELIAL CELLS,URINE FEW /LPF; RBC,URINE 0-5 /HPF (0-5); WBC,URINE (MAN) 0-5 /HPF (0-5)
[2023-03-28] MEDS ORDERED: DOXYCYCLINE HY100 MG PO (17:57)
[2023-03-28 18:09] VITALS: BP 142/87; PULSE 88; RESP 18; O2SAT 100
== END 2023-03-28 18:05 | disposition home or self-care (01) ==
LOC: ER 15:08
DX: R42 Dizziness and giddiness (principal); R91.8 Other nonspecific abnormal finding of lung field; D64.9 Anemia, unspecified; E11.65 Type 2 diabetes mellitus with hyperglycemia; I10 Essential (primary) hypertension; I25.10 Atherosclerotic heart disease of native coronary artery without angina pectoris; F41.9 Anxiety disorder, unspecified; K21.9 Gastro-esophageal reflux disease without esophagitis; G47.00 Insomnia, unspecified; I25.2 Old myocardial infarction; Z20.822 Contact with and (suspected) exposure to COVID-19; Z87.19 Personal history of other diseases of the digestive system
CPT/HCPCS: 36415; 70450; 71045; 80053; 81001; 83735; 84484; 85025; 85610; 85730; 87086; 93005; 99284; U0002